=== PATIENT | male | born 1985 | race Caucasian/White ===

== ENCOUNTER 2016-10-22 12:45 | Outpatient (CLI) | payer OTHER | END 2016-10-22 12:46 | disposition home or self-care (01) | DX: R07.89 Other chest pain (principal) ==

== ENCOUNTER 2017-02-11 08:26 | Emergency (ER) | payer OTHER ==
[2017-02-11] MEDS ORDERED: HYDROmorphone 1 MG/ML SYRINGE IVP STA ×2 (09:03→10:41)
[2017-02-11] MEDS ORDERED: ONDANSETRON 4 MG/2 ML VIAL IVP STA (09:03)
--- NOTE | 2017-02-11 09:07 | ED Physician Documentation ---
PD HPI ABD PAIN - Stated complaint Stated Complaint: R SIDE PAIN - Chief complaint Chief Complaint: Abd Pain - History obtained from History obtained from: Patient, Family - History of Present Illness Timing - onset: How many days ago (3) Timing - duration: Days (3) Timing - details: Gradual onset, Still present, Waxing and waning Pain level max: 7 Pain level now: 10 Quality: Sharp, Pain Location: RLQ Radiation: Right flank Improved by: Laying still Worsened by: Moving, Breathing, Position, Palpation Associated symptoms: Nausea. No: Fever, Vomiting, Diarrhea, Constipation, Dysuria, Hematuria, Chest pain Similar symptoms before: Diagnosis (kidney stone, pancreatitis) Recently seen: Not recently seen - Additional information Additional information: 31 y/o male with a history of diverticulitis, kidney stones and pancreatitis has developed pain in the right side over the past 3 days that has come and gone and he has not had fever. Today when he was getting ready for work the pain increased and he has no appetite. Review of Systems Constitutional: denies: Fever Eyes: denies: Decreased vision Ears: denies: Ear pain Nose: reports: Congestion Throat: denies: Sore throat Cardiac: denies: Chest pain / pressure, Palpitations Respiratory: denies: Dyspnea, Cough GI: reports: Abdominal Pain, Nausea. denies: Vomiting, Constipation, Diarrhea : denies: Dysuria, Frequency Skin: denies: Rash, Lesions Musculoskeletal: denies: Neck pain, Back pain, Extremity pain PD PAST MEDICAL HISTORY - Past Medical History Past Medical History: Yes Cardiovascular: Hypertension, [place] Respiratory: Sleep apnea Neuro: None Endocrine/Autoimmune: None GI: GERD, Diverticulitis : None HEENT: None Psych: None Musculoskeletal: None Derm: None - Past Surgical History Past Surgical History: No - Present Medications Home Medications: Ambulatory Orders Medication Instructions Recorded Confirmed Aspirin [Aspir 81] 81 mg PO DAILY 04/23/14 02/11/17 Lisinopril 20 mg PO DAILY 04/23/14 02/11/17 Omeprazole [PriLOSEC] 20 mg PO DAILY 09/24/15 02/11/17 Albuterol Sulf [Ventolin Hfa 1 - 2 puffs INH Q4HR PRN 06/26/16 02/11/17 Inhaler] Multivitamin [Multiple Vitamins] 1 each PO DAILY 06/26/16 02/11/17 Hydrocodone/Acetaminophen 1 - 2 each PO Q6HR PRN #20 tablet 02/11/17 [Hydrocodon-Acetaminophn 10-325] - Allergies Allergies/Adverse Reactions: Allergies Allergy/AdvReac Type Severity Reaction Status Date / Time No Known Drug Allergies Allergy Verified 02/11/17 08:31 - Social History Does the pt smoke?: No Smoking Status: Never smoker Does the pt drink ETOH?: Yes Does the pt have substance abuse?: No - Immunizations Immunizations are current?: Yes - POLST Patient has POLST: No PD ED PE NORMAL - Vitals Vital signs reviewed: Yes (hypertension ) - General General: Alert and oriented X 3, No acute distress, Well developed/nourished - HEENT HEENT: Atraumatic, PERRL, EOMI - Neck Neck: Supple, no meningeal sign - Cardiac Cardiac: RRR, No murmur - Respiratory Respiratory: No respiratory distress, Clear bilaterally - Abdomen Abdomen: Soft, Other (RLQ tenderness without garding and with referred tenderness. ) - Back Back: No CVA TTP, No spinal TTP - Derm Derm: Normal color, Warm and dry, No rash - Extremities Extremities: No deformity, No edema - Neuro Neuro: Alert and oriented X 3, No motor deficit, No sensory deficit, Normal speech - Psych Psych: Normal mood, Normal affect Results - Vitals Vitals: Vital Signs - 24 hr 02/11/17 02/11/17 08:29 10:11 Temperature 36.6 C Heart Rate 88 76 Respiratory 20 17 Rate Blood Pressure 141/79 H 112/53 L O2 Saturation 97 97 Oxygen O2 Source Room air - Labs Labs: Laboratory Tests 02/11/17 02/11/17 02/11/17 08:49 09:12 10:02 WBC 6.2 RBC 4.69 L Hgb 14.7 Hct 42.6 MCV 90.8 MCH 31.3 H MCHC 34.5 RDW 13.2 Plt Count 215 MPV 7.3 L Neut # 3.5 Lymph # 2.1 [place] # 0.4 Eos # 0.1 Baso # 0.1 Absolute Nucleated RBC 0.00 Nucleated RBCs 0.0 Sodium 138 Potassium 4.3 Chloride 104 Carbon Dioxide 25 Anion Gap 9.0 BUN 15 Creatinine 0.6 Estimated GFR (MDRD) 155 Glucose 108 H Calcium 9.4 Total Bilirubin 0.8 AST 37 ALT 52 Alkaline Phosphatase 53 Total Protein 8.0 Albumin 4.2 Globulin 3.8 Albumin/Globulin Ratio 1.1 Lipase 38 Urine Color YELLOW Urine Clarity HAZY Urine pH 6.0 Ur Specific [place] 1.025 Urine Protein NEGATIVE Urine Glucose (UA) NEGATIVE Urine Ketones NEGATIVE Urine Occult Blood LARGE H Urine Nitrite NEGATIVE Urine Bilirubin NEGATIVE Urine Urobilinogen 0.2 (NORMAL) Ur Leukocyte Esterase NEGATIVE Urine RBC 11-25 H Urine WBC 0-3 Ur Squamous Epith Cells FEW Squamous Urine Crystals 3-5 Calcium Oxalate Urine Bacteria Moderate H Urine Casts 6-10 Hyaline Casts Urine Mucus Marked Strands Ur Microscopic Review INDICATED Urine Culture Comments INDICATED - Rads (name of study) two-view chest Radiology: Prelim report reviewed (Impression: 1. A 3 mm obstructing stone in the right ureter at L4 level probably dropped down from the lower pole the right kidney. Previous similar size stone in the lower pole right kidney is no longer present. Mild right hydronephrosis and hydroureter. 2. No change in the several tiny punctate nonobstructing stones in the upper and lower poles of the left kidney. 3. Diffuse fatty infiltration of liver, worse than prior study. No obvious masses demonstrated in is limited noncontrast study. 4. The appendix is normal.), EMP read indepedently, See rad report Procedures - Bedside sono Bedside sono by EMP: with the use of bedside ultrasound the right kidney is imaged and it is sonographically non-tender and without hydronephrosis. PD MEDICAL DECISION MAKING - ED course Complexity details: considered differential, d/w patient, d/w family ED course: 31 y/o male with a history of kidney stones, pancreatitis and diverticulitis has onset of pain in the right side with localized peritoneal signs on physical exam in the RLQ. He has no evidence of hydro on bedside exam but his most recent CT done in Jun 2016 showed small stones (2mm and less) in both kidneys. CT today shows a 3mm stone in the mid ureter, there is blood in the urine and a normal appearing appendix on CT. The patient is given IV saline and dilaudid and a single mg is not adequate and toradal is not much help either. He is given a second dilaudid dose. Departure - Departure Disposition: 01 Home, Self Care Clinical Impression: Ureterolithiasis Condition: Stable Instructions: ED Stone Renal W Colic Follow-Up: Ann Marie Birch MD [Primary Care Provider] - Prescriptions: Hydrocodone/Acetaminophen [Hydrocodon-Acetaminophn 10-325] 1 - 2 each PO Q6HR PRN #20 tablet PRN Reason: Pain Forms: Activity restrictions
[2017-02-11 09:13] LABS: BILIRUBIN,URINE NEGATIVE (NEGATIVE)
[2017-02-11] MEDS ORDERED: ONDANSETRON 4 MG/2 ML VIAL ONE (09:15)
[2017-02-11] MEDS ORDERED: HYDROmorphone 1 MG/ML SYRINGE ONE ×2 (09:15→10:43)
[2017-02-11 09:17] LABS: UA w/ MICROSCOPIC CHARGE YES
[2017-02-11 09:19] LABS: BASOPHILS # (AUTO) 0.1 10^3/uL (0.0-0.1); EOSINOPHILS # (AUTO) 0.1 10^3/uL (0.0-0.7); EOSINOPHILS % (AUTO) 1.5 %; HCT - HEMATOCRIT 42.6 % (42.0-52.0); HGB - HEMOGLOBIN 14.7 g/dL (14.0-18.0); LYMPHOCYTES # (AUTO) 2.1 10^3/uL (1.5-3.5); LYMPHOCYTES % (AUTO) 33.1 %; MEAN CORPUSCULAR HEMOGLOBIN 31.3 pg (27.0-31.0); MEAN CORPUSCULAR HGB CONC 34.5 g/dL (32.0-36.0); MEAN CORPUSCULAR VOLUME 90.8 fL (80.0-94.0); MEAN PLATELET VOLUME 7.3 fL (7.4-11.4); MONOCYTES # (AUTO) 0.4 10^3/uL (0.0-1.0); NEUTROPHILS # (AUTO) 3.5 10^3/uL (1.5-6.6); NEUTROPHILS % (AUTO) 57.4 %; RED BLOOD COUNT 4.69 10^6/uL (4.70-6.10); RED CELL DISTRIBUTION WIDTH 13.2 % (12.0-15.0); UNCORRECTED WHITE BLOOD COUNT 6.2 x10^3/uL; WHITE BLOOD COUNT 6.2 x10^3/uL (4.8-10.8)
[2017-02-11 09:34] LABS: UR CULTURE IF IND INDICATED; WBC,URINE 0-3 /HPF (0-3)
--- NOTE | 2017-02-11 09:56 | CT Preliminary Report ---
Exam: CT Abdomen/Pelvis W/O IMPRESSION: 1. A 3 mm obstructing stone in the right ureter at L4 level probably dropped down from the lower pole of the right kidney. Previous similar size stone in the lower pole of the right kidney is no longer present. Mild right hydronephrosis and hydroureter. 2. No change in the several tiny punctate nonobstructing stones in the upper and lower poles of the l eft kidney. 3. Diffuse fatty infiltration of liver, worse than in the prior study. No obvious mass is demonstrate d in this limited noncontrast study. 4. The appendix is normal. [facility] SITE ID: [id number]
[2017-02-11] MEDS ORDERED: SODIUM CHLORIDE 0.9% 1,000 ML IV ONE (09:59)
[2017-02-11] MEDS ORDERED: KETOROLAC 60 MG/2 ML VIAL IVP STA (09:59)
--- NOTE | 2017-02-11 09:59 | CT Report ---
EXAM: CT ABDOMEN AND PELVIS (CT KUB) EXAM DATE: 02/11/2017 09:38 AM. CLINICAL HISTORY: RLQ pain radiating to the flank/tender. COMPARISONS: CT ABDOMEN AND PELVIS (CT KUB) 06/26/2016. TECHNIQUE: Routine axial helical CT imaging was performed through the abdomen and pelvis without IV c ontrast. Reconstructions: Coronal and sagittal. In accordance with CT protocol optimization, one or more of the following dose reduction techniques w ere utilized for this exam: automated exposure control, adjustment of mA and/or KV based on patient s ize, or use of iterative reconstructive technique. FINDINGS: Lung Bases: Unremarkable. Right Kidney/Ureter: A 3 mm mildly obstructing stone in the right ureter at L4 level probably dropped down from the lower pole of the right kidney. Previous similar size stone in the lower pole of the r ight kidney is no longer present. No renal stones. Mild right hydronephrosis and hydroureter. Mild pe rinephric fat stranding. Left Kidney/Ureter: No change in the several tiny punctate stones in the upper and lower poles of the left kidney. No hydronephrosis, or hydroureter. No perinephric fat stranding. Other Solid Organs: Diffuse fatty infiltration of liver, worse than in the prior study. No obvious ma ss is demonstrated in this limited noncontrast study. Noncontrast images of the other solid organs ar e grossly unremarkable. Gallbladder/Bile Ducts: Unremarkable. Peritoneal Cavity: No free fluid, free air or josue adenopathy. Bowel is grossly unremarkable. The ap pendix is normal. Pelvic Organs: No bladder stones or wall thickening. Noncontrast images of the visualized pelvic orga ns are unremarkable. Vasculature: Unremarkable. Other: None. IMPRESSION: 1. A 3 mm obstructing stone in the right ureter at L4 level probably dropped down from the lower pole of the right kidney. Previous similar size stone in the lower pole of the right kidney is no longer present. Mild right hydronephrosis and hydroureter. 2. No change in the several tiny punctate nonobstructing stones in the upper and lower poles of the l eft kidney. 3. Diffuse fatty infiltration of liver, worse than in the prior study. No obvious mass is demonstrate d in this limited noncontrast study. 4. The appendix is normal. [facility] Referring Provider Line: [phone] SITE ID: [id number]
[2017-02-11] MEDS ORDERED: KETOROLAC 30 MG/ML VIAL ONE (10:01)
[2017-02-11 10:21] LABS: ALBUMIN/GLOBULIN RATIO 1.1 (1.0-2.2); BILIRUBIN,TOTAL 0.8 mg/dL (0.2-1.0); CALCIUM 9.4 mg/dL (8.5-10.3); CREATININE 0.6 mg/dL (0.6-1.2); POTASSIUM 4.3 mmol/L (3.5-5.0)
[2017-02-11 11:28] VITALS: BP 134/68
== END 2017-02-11 11:27 | disposition home or self-care (01) ==
LOC: ED 08:26
DX: N13.2 Hydronephrosis with renal and ureteral calculous obstruction (principal); Z87.442 Personal history of urinary calculi; Z87.19 Personal history of other diseases of the digestive system; I10 Essential (primary) hypertension; I25.2 Old myocardial infarction; G47.30 Sleep apnea, unspecified; K21.9 Gastro-esophageal reflux disease without esophagitis; Z79.82 Long term (current) use of aspirin
CPT/HCPCS: 36415; 74176; 80053; 81001; 83690; 85025; 87086; 96361; 96374; 96375; 96376; 99284; J1170; 81003

== ENCOUNTER 2019-04-27 00:18 | Emergency (ER) | payer OTHER ==
[2019-04-27 00:57] LABS: BASOPHILS % (AUTO) 0.4 %; EOSINOPHILS # (AUTO) 0.1 10^3/uL (0.0-0.7); HGB - HEMOGLOBIN 15.5 g/dL (14.0-18.0); LYMPHOCYTES % (AUTO) 37.9 %; MEAN CORPUSCULAR HEMOGLOBIN 31.2 pg (27.0-31.0); MEAN CORPUSCULAR HGB CONC 34.4 g/dL (32.0-36.0); MEAN CORPUSCULAR VOLUME 90.5 fL (80.0-94.0); MEAN PLATELET VOLUME 9.1 fL (7.4-11.4); MONOCYTES # (AUTO) 0.8 10^3/uL (0.0-1.0); MONOCYTES % (AUTO) 9.5 %; NEUTROPHILS % (AUTO) 50.3 %; PLT - PLATELET COUNT 219 10^3/uL (130-450); RED BLOOD COUNT 4.97 10^6/uL (4.70-6.10); RED CELL DISTRIBUTION WIDTH 13.1 % (12.0-15.0); WHITE BLOOD COUNT 7.9 x10^3/uL (4.8-10.8)
[2019-04-27 01:11] LABS: ALBUMIN 4.3 g/dL (3.2-5.5); ALBUMIN/GLOBULIN RATIO 1.1 (1.0-2.2); BILIRUBIN,TOTAL 0.6 mg/dL (0.2-1.0); CALCIUM 8.8 mg/dL (8.5-10.3); CREATININE 0.7 mg/dL (0.6-1.2); TOTAL PROTEIN 8.3 g/dL (6.7-8.2)
[2019-04-27] MEDS ORDERED: DEXAMETHASONE 10 MG/ML VIAL IVP STA (01:48)
[2019-04-27] MEDS ORDERED: KETOROLAC 30 MG/ML VIAL IVP STA (01:48)
--- NOTE | 2019-04-27 01:50 | ED Physician Documentation ---
PD HPI CHEST PAIN - Stated complaint Stated Complaint: SOA,TIGHT CHEST, ARM PX - Chief complaint Chief Complaint: Cardiac - History obtained from History obtained from: Patient, Family - History of Present Illness Timing - onset: Enter time (1999), Today Timing - onset during: Rest Timing - duration: Hours Timing - details: Abrupt onset, Still present Quality: Sharp, Pain Location: Left shoulder/arm Radiation: Left upper extremity Improved by: Nothing Worsened by: Other (nothing) Associated symptoms: Shortness of air. 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 He states the pain is sharp and burning in nature and when this initially came on he had no explanation and he does not have any difficulty with range of motion of the shoulder and the and movement does not appear to change the pain in any way. He felt initially that he might be short of breath and that resolved. His pain resolved and when it came back it has persisted and he is come now to the emergency department for evaluation. He denies any weakness or numbness. He has not had injury to his neck he denies any pain in his neck and he denies any specific injury today at work. He does get headache related to his neck and he had that earlier today. Review of Systems Constitutional: denies: Fever Eyes: denies: Decreased vision Ears: denies: Ear pain Nose: denies: Congestion Throat: denies: Sore throat Cardiac: denies: Chest pain / pressure, Palpitations Respiratory: reports: Dyspnea. denies: Cough, Wheezing GI: denies: Abdominal Pain, Nausea, Vomiting : denies: Dysuria, Frequency Skin: denies: Rash, Lesions Musculoskeletal: reports: Extremity pain. denies: Neck pain, Back pain, Joint pain, Extremity swelling, Joint swelling, Pain with weight bearing Neurologic: denies: Generalized weakness, Focal weakness, Numbness PD PAST MEDICAL HISTORY - Past Medical History Cardiovascular: Hypertension, [place] Respiratory: Sleep apnea Neuro: None Endocrine/Autoimmune: None GI: GERD, Diverticulitis : None HEENT: None Psych: None Musculoskeletal: None Derm: None - Past Surgical History Past Surgical History: No - Present Medications Home Medications: Ambulatory Orders Medication Instructions Recorded Confirmed Aspirin [Aspir 81] 81 mg PO DAILY 04/23/14 02/11/17 RX: Lisinopril 20 mg PO DAILY 04/23/14 02/11/17 Omeprazole [PriLOSEC] 20 mg PO DAILY 09/24/15 02/11/17 Albuterol Sulf [Ventolin Hfa 1 - 2 puffs INH Q4HR PRN 06/26/16 02/11/17 Inhaler] Multivitamin [Multiple Vitamins] 1 each PO DAILY 06/26/16 02/11/17 Hydrocodone/Acetaminophen 1 - 2 each PO Q6HR PRN #20 tablet 02/11/17 [Hydrocodon-Acetaminophn 10-325] Cyclobenzaprine [Flexeril] 10 mg PO TID PRN #20 tablet 04/27/19 Hydrocodone/Acetaminophen 1 - 2 each PO Q6H PRN #14 tablet 04/27/19 [Hydrocodon-Acetaminophen 5-325] - Allergies Allergies/Adverse Reactions: Allergies Allergy/AdvReac Type Severity Reaction Status Date / Time No Known Drug Allergies Allergy Verified 02/11/17 08:31 - Social History Does the pt smoke?: No Smoking Status: Never smoker Does the pt drink ETOH?: Yes Does the pt have substance abuse?: No - Immunizations Immunizations are current?: Yes - POLST Patient has POLST: No PD ED PE NORMAL - Vitals Vital signs reviewed: Yes (hypertensive ) - General General: Alert and oriented X 3, No acute distress, Well developed/nourished - HEENT HEENT: Atraumatic, PERRL, EOMI - Neck Neck: Supple, no meningeal sign, No bony TTP, Other (no pain increase with axial pressure on the head ) - Cardiac Cardiac: RRR, No murmur - Respiratory Respiratory: No respiratory distress, Clear bilaterally - Abdomen Abdomen: Soft, Non tender - Back Back: No CVA TTP, No spinal TTP - Derm Derm: Normal color, Warm and dry, No rash - Extremities Extremities: No deformity, No tenderness to palpate, Normal ROM s pain, No edema, No calf tenderness / cord - Neuro Neuro: Alert and oriented X 3, 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, No motor deficit, No sensory deficit, Normal speech Eye Opening: Spontaneous Motor: Obeys Commands Verbal: Oriented GCS Score: 15 - Psych Psych: Normal mood, Normal affect Results - Vitals Vitals: Vital Signs - 24 hr 04/27/19 04/27/19 04/27/19 00:26 00:55 02:34 Temperature 36.3 C L Heart Rate 85 82 76 Respiratory 17 14 20 Rate Blood Pressure 155/89 H 132/87 H 146/81 H O2 Saturation 98 97 94 04/27/19 03:11 Temperature 36.6 C Heart Rate 79 Respiratory 18 Rate Blood Pressure 136/78 H O2 Saturation 95 Oxygen O2 Source Room air - EKG (time done) 0028 Rate: Rate (enter#) (88) Rhythm: NSR Ischemia: Normal ST segments Compare to prior EKG: Changed from prior EKG (SPT 09-13-15 rate has decreased) Computer interpretation: Agree with computer - Labs Labs: Laboratory Tests 04/27/19 04/27/19 04/27/19 00:40 00:40 00:40 WBC 7.9 RBC 4.97 Hgb 15.5 Hct 45.0 MCV 90.5 MCH 31.2 H MCHC 34.4 RDW 13.1 Plt Count 219 MPV 9.1 Neut # (Auto) 4.0 Lymph # (Auto) 3.0 [place] # (Auto) 0.8 Eos # (Auto) 0.1 Baso # (Auto) 0.0 Absolute Nucleated RBC 0.00 Nucleated RBC % 0.0 D-Dimer Sodium 140 Potassium 3.6 Chloride 105 Carbon Dioxide 25 Anion Gap 10.0 BUN 14 Creatinine 0.7 Estimated GFR (MDRD) 128 Glucose 109 H Calcium 8.8 Total Bilirubin 0.6 AST 29 ALT 40 Alkaline Phosphatase 43 Troponin I High Sens 2.9 Total Protein 8.3 H Albumin 4.3 Globulin 4.0 Albumin/Globulin Ratio 1.1 Lipase 42 04/27/19 01:40 WBC RBC Hgb Hct MCV MCH MCHC RDW Plt Count MPV Neut # (Auto) Lymph # (Auto) [place] # (Auto) Eos # (Auto) Baso # (Auto) Absolute Nucleated RBC Nucleated RBC % D-Dimer < 200.0 L Sodium Potassium Chloride Carbon Dioxide Anion Gap BUN Creatinine Estimated GFR (MDRD) Glucose Calcium Total Bilirubin AST ALT Alkaline Phosphatase Troponin I High Sens Total Protein Albumin Globulin Albumin/Globulin Ratio Lipase - Rads (name of study) chest Radiology: Prelim report reviewed (Impression: No radiographic evidence of acute cardiopulmonary process.), EMP read indepedently, See rad report shoulder Radiology: Prelim report reviewed (Impression: Normal left shoulder radiography.), EMP read indepedently, See rad report PD MEDICAL DECISION MAKING - ED course Complexity details: reviewed old records, reviewed results, re-evaluated patient, considered differential, d/w patient, d/w family ED course: 34-year-old male with sudden onset of left shoulder and arm pain without explanation and without modifying factors has negative diagnostics and he does have some improvement with use of dexamethasone and Toradol. I suspect he has a cervical radiculopathy. Departure - Departure Disposition: 01 Home, Self Care Clinical Impression: Cervical radiculopathy Condition: Stable Instructions: ED Cervical Radiculopathy Follow-Up: [facility] [Provider Group] Prescriptions: Cyclobenzaprine [Flexeril] 10 mg PO TID PRN #20 tablet PRN Reason: Spasms Hydrocodone/Acetaminophen [Hydrocodon-Acetaminophen 5-325] 1 - 2 each PO Q6H PRN #14 tablet PRN Reason: pain Forms: Activity restrictions Discharge Date/Time: 04/27/19 03:12
--- NOTE | 2019-04-27 02:41 | XRAY Report ---
Reason: shoulder pain radiating Procedure Date: 04/27/2019 Accession Number: [id number] / [id number] Procedure: XR - Chest 2 View X-Ray CPT Code: 50591 FULL RESULT: EXAM: CHEST RADIOGRAPHY EXAM DATE: 04/27/2019 02:13 AM. CLINICAL HISTORY: Shoulder pain radiating. COMPARISON: CHEST 2 VIEW PA/LAT 09/24/2015 7:30 PM. TECHNIQUE: 2 views. FINDINGS: Lungs/Pleura: No focal opacities evident. No pulmonary edema. No pleural effusion. No pneumothorax. Low normal volumes. Mediastinum: Heart and mediastinal contours are unremarkable. Other: None. IMPRESSION: No radiographic evidence of acute cardiopulmonary process. [facility]
--- NOTE | 2019-04-27 02:43 | XRAY Report ---
Reason: shoulder pain radiating Procedure Date: 04/27/2019 Accession Number: [id number] / [id number] Procedure: XR - Shoulder 3 View LT CPT Code: FULL RESULT: EXAM: LEFT SHOULDER RADIOGRAPHY EXAM DATE: 04/27/2019 02:13 AM. CLINICAL HISTORY: Shoulder pain radiating. COMPARISON: SHOULDER 2 VIEW LT 03/18/2017 2:44 PM. TECHNIQUE: 4 views. FINDINGS: Bones: Normal. No fracture or bone lesion. Joints: The glenohumeral and acromioclavicular joints are normal. Soft tissues: The visualized hemithorax is unremarkable. No soft tissue swelling. IMPRESSION: Normal left shoulder radiography. [facility]
[2019-04-27 03:12] VITALS: BP 136/78
== END 2019-04-27 03:12 | disposition home or self-care (01) ==
LOC: ED 00:18
DX: M54.12 Radiculopathy, cervical region (principal); I10 Essential (primary) hypertension
CPT/HCPCS: 36415; 71046; 80053; 83690; 84484; 85025; 85379; 93005; 96374; 99284

== ENCOUNTER 2019-05-08 08:00 | Outpatient (CLI) | payer OTHER ==
[2019-05-08 18:47] LABS: CHOL/HDL RATIO 4.8 (<5.0); CHOLESTEROL 173 mg/dL; HDL CHOLESTEROL 36 mg/dL; LDL CHOLESTEROL,CALCULATED 96 mg/dL; LDL/HDL RATIO 2.7 (<3.6); VLDL CHOLESTEROL 41 mg/dL
== END 2019-05-08 23:59 | disposition home or self-care (01) ==
LOC: LAB.WCP 08:00
PROVIDERS: ATTEND Family Medicine
DX: E78.5 Hyperlipidemia, unspecified (principal)
CPT/HCPCS: 36415; 80061; 83721

== ENCOUNTER 2019-09-13 13:49 | Outpatient (CLI) | payer OTHER ==
[2019-09-13] MEDS ORDERED: PERFLUTREN LIPID MICROSPHERES 1.65 MG/1.5 ML VIAL IVP ONE (15:30)
--- NOTE | 2019-09-13 17:52 | CARDIAC PROCEDURE NOTE ---
DATE OF SERVICE: 09/13/2019 Physician: Maral Paz MD, [facility] INDICATION: Shortness of breath. CARDIAC RISK FACTORS: Morbid obesity, hypertension, family history in many members with early heart disease and cardiac . PROCEDURE: After signing informed consent, the patient underwent a Juan- protocol treadmill stress test with Echo imaging pre- and post-exercise. Definity was needed for improving Echo images due to his morbid obesity causing poor images. RESTING HEART RATE: 85. PEAK HEART RATE: 171 (92% predicted maximum heart rate for age). RESTING BLOOD PRESSURE: 135/79. PEAK BLOOD PRESSURE: 210/66. The patient exercised for 7 minutes and 27 seconds on a Juan-protocol treadmill stress test. He achieved a peak heart rate of 171 (92% PMHR) and 9.3 METS. The patient had moderate shortness of breath and reported his perceived exertion at peak to be 13-14/20 on a [place] scale. Oxygen saturation was 96-98% on room air throughout the entire test. RESTING EKG: Normal sinus rhythm, left atrial enlargement, vertical axis, flat T waves in leads III, aVF and V6. EKG AT PEAK: No new ST-segment or T-wave changes. SUMMARY 1. Abnormal resting EKG. 2. Fair aerobic exercise tolerance. 3. No new ischemic changes per EKG criteria during this treadmill stress test. 4. Excessively high blood pressure response. (The patient was told not to use his morning lisinopril today). 5. This patient's cardiac risk based on all the above: Moderate. 6. Echo images reported separately. cc: Kareem Tao DO TD: 09/13/2019 17:28 [facility]
== END 2019-09-13 13:50 | disposition home or self-care (01) ==
LOC: DI 13:49
PROVIDERS: ATTEND Family Medicine
DX: R06.02 Shortness of breath (principal); I10 Essential (primary) hypertension; E78.5 Hyperlipidemia, unspecified; Z82.49 Family history of ischemic heart disease and other diseases of the circulatory system; R94.31 Abnormal electrocardiogram [ECG] [EKG]
CPT/HCPCS: 93350; Q9957

== ENCOUNTER 2020-01-24 18:12 | Emergency (ER) | payer OTHER ==
--- NOTE | 2020-01-24 18:48 | ED Physician Documentation ---
PD HPI ABD PAIN - Stated complaint Stated Complaint: NAUSEA/LT ABD PX - Chief complaint Chief Complaint: Abd Pain - Additional information Additional information: 34 year old male here with cc of 3 days left sided abdominal pain. Vomiting X1, but no diarrhea, melena. Pt reports that about 10 years ago he was hospitalized for diverticulitis. However he has never had surgery. Also has a hx of nephrolithaisis, but denies flank pain, cva tenderness or hematuria. Pt appears very uncomfortable Review of Systems Constitutional: denies: Fever, Chills, Myalgias Cardiac: denies: Chest pain / pressure, Palpitations Respiratory: denies: Dyspnea, Cough GI: reports: Abdominal Pain, Vomiting. denies: Constipation, Diarrhea, Hematemesis, Bloody / black stool : denies: Dysuria, Frequency, Hesitancy, Unable to Void, Hematuria Skin: denies: Rash, Lesions Neurologic: denies: Generalized weakness, Focal weakness, Syncope, Seizure PD PAST MEDICAL HISTORY - Past Medical History Cardiovascular: Hypertension, [place] Respiratory: Sleep apnea Neuro: None Endocrine/Autoimmune: None GI: GERD, Diverticulitis : None HEENT: None Psych: None Musculoskeletal: None Derm: None - Past Surgical History Past Surgical History: No - Present Medications Home Medications: Ambulatory Orders Medication Instructions Recorded Confirmed Aspirin [Aspir 81] 81 mg PO DAILY 04/23/14 01/24/20 Lisinopril 20 mg PO DAILY 04/23/14 01/24/20 Ciprofloxacin HCl [Cipro] 500 mg PO BID #20 tablet 01/24/20 Hydrocodone/Acetaminophen 1 each PO Q6H PRN 1 Days #3 tablet 01/24/20 [Hydrocodon-Acetaminophen 5-325] metroNIDAZOLE [Flagyl] 500 mg PO BID #20 tablet 01/24/20 - Allergies Allergies/Adverse Reactions: Allergies Allergy/AdvReac Type Severity Reaction Status Date / Time No Known Drug Allergies Allergy Verified 01/24/20 18:20 - Social History Does the pt smoke?: No Smoking Status: Never smoker Does the pt drink ETOH?: Yes Does the pt have substance abuse?: No - Immunizations Immunizations are current?: Yes - POLST Patient has POLST: No PD ED PE NORMAL - General General: Alert and oriented X 3, No acute distress, Well developed/nourished - HEENT HEENT: Atraumatic - Neck Neck: Supple, no meningeal sign - Cardiac Cardiac: RRR, No murmur - Respiratory Respiratory: No respiratory distress - Abdomen Abdomen: Other (tenderness LUQ and LLQ of abdomen; negative mcburneys, negative murphys. no rebound, guarding) - Back Back: No CVA TTP, No spinal TTP - Extremities Extremities: No deformity, Normal ROM s pain, No edema - Neuro Neuro: Alert and oriented X 3, ophthalmic tech 2-12 intact, No motor deficit Results - Vitals Vitals: Vital Signs - 24 hr 01/24/20 18:21 Temperature 37 C Heart Rate 111 H Respiratory 18 Rate Blood Pressure 159/86 H O2 Saturation 98 Oxygen O2 Source Room air - Labs Labs: Laboratory Tests 01/24/20 01/24/20 18:43 18:43 WBC 11.6 H RBC 4.89 Hgb 15.8 Hct 45.1 MCV 92.2 MCH 32.3 H MCHC 35.0 RDW 12.4 Plt Count 195 MPV 9.2 Neut # (Auto) 8.3 H Lymph # (Auto) 2.3 [place] # (Auto) 0.9 Eos # (Auto) 0.0 Baso # (Auto) 0.1 Absolute Nucleated RBC 0.00 Nucleated RBC % 0.0 Sodium 135 Potassium 4.0 Chloride 100 L Carbon Dioxide 26 Anion Gap 9.0 BUN 11 Creatinine 0.7 Estimated GFR (MDRD) 128 Glucose 104 H Calcium 8.8 Total Bilirubin 0.7 AST 28 ALT 43 Alkaline Phosphatase 44 Total Protein 8.3 H Albumin 4.4 Globulin 3.9 Albumin/Globulin Ratio 1.1 Lipase 38 - Rads (name of study) CT abd Radiology: Final report received (Left colon diverticulitis without abscess or perforation. no free air or fluid) PD MEDICAL DECISION MAKING - ED course Complexity details: reviewed old records, reviewed results, re-evaluated patient, considered differential, d/w patient ED course: 34 year old male presents to the ED with 2 days of left sided abdominal pain. has a hx of diverticulitis and nephrolithiasis - CT scan reveals uncomplicated diverticulitis without abscess or perforation of the left colon - labs reassuring. no significant leukocytosis. UA unremarkable and no e/o infection - pain is moderately controlled here in clinic after Dilaudid and pt is tolerating po - dc home with flagyl and cipro - will rx very limited # norco (3) for analgesia - explicit return precautions discussed - f/u with pcp for revaluation Departure - Departure Disposition: 01 Home, Self Care Clinical Impression: Diverticulitis large intestine Qualifiers: Diverticulitis bleeding: without bleeding Diverticulitis complication: without perforation or abscess Qualified Code(s): K57.32 - Diverticulitis of large intestine without perforation or abscess without bleeding Condition: Stable Record reviewed to determine appropriate education?: Yes Instructions: Diverticulitis Dc Follow-Up: Kareem Tao DO [Primary Care Provider] - Prescriptions: Ciprofloxacin HCl [Cipro] 500 mg PO BID #20 tablet Hydrocodone/Acetaminophen [Hydrocodon-Acetaminophen 5-325] 1 each PO Q6H PRN 1 Days #3 tablet PRN Reason: pain metroNIDAZOLE [Flagyl] 500 mg PO BID #20 tablet Comments: Jaun, i hope you feel better soon. The CT scan shows again an uncomplicated diverticulitis. please begin taking the cipro and flagyl antibiotics as prescribed for pain control I prescribed a very limited Number of hydrocodone for pain control. If your symptoms are worsening you develop fevers or bloody stools please return to the emergency department. Follow-up with your primary care provider this week.
[2020-01-24] MEDS ORDERED: ONDANSETRON 4 MG/2 ML VIAL IVP STA (18:50)
[2020-01-24 18:51] LABS: BASOPHILS # (AUTO) 0.1 10^3/uL (0.0-0.1); BASOPHILS % (AUTO) 0.6 %; EOSINOPHILS % (AUTO) 0.3 %; HGB - HEMOGLOBIN 15.8 g/dL (14.0-18.0); LYMPHOCYTES # (AUTO) 2.3 10^3/uL (1.5-3.5); LYMPHOCYTES % (AUTO) 19.7 %; MEAN CORPUSCULAR HEMOGLOBIN 32.3 pg (27.0-31.0); MEAN CORPUSCULAR VOLUME 92.2 fL (80.0-94.0); MEAN PLATELET VOLUME 9.2 fL (7.4-11.4); MONOCYTES # (AUTO) 0.9 10^3/uL (0.0-1.0); MONOCYTES % (AUTO) 7.5 %; NEUTROPHILS # (AUTO) 8.3 10^3/uL (1.5-6.6); NEUTROPHILS % (AUTO) 71.3 %; PLT - PLATELET COUNT 195 10^3/uL (130-450); RED BLOOD COUNT 4.89 10^6/uL (4.70-6.10); RED CELL DISTRIBUTION WIDTH 12.4 % (12.0-15.0); WHITE BLOOD COUNT 11.6 x10^3/uL (4.8-10.8)
[2020-01-24] MEDS ORDERED: HYDROmorphone 1 MG/ML CARPUJECT IVP STA (18:52)
[2020-01-24 19:03] LABS: ALBUMIN 4.4 g/dL (3.2-5.5); ALBUMIN/GLOBULIN RATIO 1.1 (1.0-2.2); BILIRUBIN,TOTAL 0.7 mg/dL (0.2-1.0); CALCIUM 8.8 mg/dL (8.5-10.3); CREATININE 0.7 mg/dL (0.6-1.2); TOTAL PROTEIN 8.3 g/dL (6.7-8.2)
[2020-01-24] MEDS ORDERED: IOVERSOL 320 100 ML VIAL IVP ONE ×2 (19:15→20:46)
[2020-01-24 19:22] LABS: BILIRUBIN,URINE NEGATIVE (NEGATIVE); GLUCOSE, URINE (UA) NEGATIVE (NEGATIVE); KETONES,URINE (UA) NEGATIVE (NEGATIVE); LEUKOCYTE ESTERASE, URINE NEGATIVE (NEGATIVE); NITRITE,URINE NEGATIVE (NEGATIVE); OCCULT BLOOD,URINE TRACE-INTA (NEGATIVE); PH,URINE 5.5 PH (5.0-7.5); PROTEIN,URINE NEGATIVE (NEGATIVE); UROBILINOGEN,URINE 0.2 (NORMAL) E.U./dL (NORMAL)
[2020-01-24 19:29] LABS: CLARITY,URINE CLEAR (CLEAR)
--- NOTE | 2020-01-24 19:42 | CT Report ---
Reason: LLQ pain; hx of diverticulitis. vomiting Procedure Date: 01/24/2020 Accession Number: [id number] / [id number] Procedure: CT - Abdomen/Pelvis W CPT Code: Final Report FULL RESULT: PROCEDURE: Abdomen/Pelvis W INDICATIONS: LLQ pain; hx of diverticulitis. vomiting CONTRAST: IV CONTRAST: Optiray 320 ml: 100 PO CONTRAST: *NO PO CONTRAST TECHNIQUE: After the administration of oral and intravenous contrast, 5 mm thick sections acquired from the diaphragms to the symphysis. 5 mm thick coronal and sagittal reformats were acquired. For radiation dose reduction, the following was used: automated exposure control, adjustment of mA and/or kV according to patient size. COMPARISON: CT abdomen and pelvis 02/11/2017 and 06/26/2016. FINDINGS: Image quality: Excellent. ABDOMEN: Lung bases: Lung bases are clear. Heart size is normal. Solid organs: Liver and spleen are normal in size and enhancement. Mild, diffuse fatty infiltration of the liver. Gallbladder is within normal limits Biliary system is non dilated. Pancreas enhances normally. No adrenal nodules. Kidneys demonstrate normal size and enhancement, without hydronephrosis. Peritoneum and bowel: Bowel loops demonstrate normal wall thickness and caliber. A few scattered diverticuli noted in the colon. Mild inflammatory changes noted adjacent to diverticuli in the mid left colon. No peridiverticular free fluid, abscess or free air. No free fluid or air. The appendix is normal. Nodes and vessels: No retroperitoneal or mesenteric adenopathy by size criteria. Aorta and inferior vena cava are normal in size. Miscellaneous: No ventral hernias. PELVIS: Genitourinary: Bladder wall thickness is normal. Miscellaneous: No inguinal hernias or adenopathy. Bones: No suspicious bony lesions. No vertebral body compression fractures. Spine degenerative disc disease and facet arthropathy are noted. IMPRESSION: 1. Left colon diverticulitis. 2. No peridiverticular abscess. 3. No free fluid or free air. 4. Hepatic steatosis. Reviewed by: Olga Appiah MD, PhD on 01/24/2020 7:41 PM PDT Approved by: Olga pApiah MD, PhD on 01/24/2020 7:41 PM PDT Station ID: [id number]
[2020-01-24 19:53] LABS: BACTERIA,URINE None Seen /HPF (None Seen); RBC,URINE 0-5 /HPF (0-5); SQUAMOUS EPITHELIAL CELL,UR NONE SEEN (<= Few)
[2020-01-24] MEDS ORDERED: HYDROcod/ACETAM 5/325 MG TABLET PO STA (20:15)
[2020-01-24 20:35] VITALS: BP 117/69
== END 2020-01-24 20:35 | disposition home or self-care (01) ==
LOC: ED 18:12
DX: K57.32 Diverticulitis of large intestine without perforation or abscess without bleeding (principal); K76.0 Fatty (change of) liver, not elsewhere classified; I10 Essential (primary) hypertension; Z79.82 Long term (current) use of aspirin
CPT/HCPCS: 36415; 74177; 80053; 81001; 83690; 85025; 96374; 99283; 99284; A9270; J1170; Q9967; 87086

== ENCOUNTER 2020-01-25 18:49 | Inpatient (IN) | payer OTHER ==
[2020-01-25 19:15] LABS: BASOPHILS # (AUTO) 0.1 10^3/uL (0.0-0.1); BASOPHILS % (AUTO) 0.4 %; EOSINOPHILS % (AUTO) 0.2 %; LYMPHOCYTES # (AUTO) 2.1 10^3/uL (1.5-3.5); LYMPHOCYTES % (AUTO) 16.1 %; MEAN CORPUSCULAR HEMOGLOBIN 32.3 pg (27.0-31.0); MEAN CORPUSCULAR HGB CONC 35.2 g/dL (32.0-36.0); MEAN CORPUSCULAR VOLUME 91.6 fL (80.0-94.0); MONOCYTES # (AUTO) 1.1 10^3/uL (0.0-1.0); MONOCYTES % (AUTO) 8.1 %; NEUTROPHILS # (AUTO) 9.8 10^3/uL (1.5-6.6); NEUTROPHILS % (AUTO) 74.4 %; PLT - PLATELET COUNT 196 10^3/uL (130-450); RED BLOOD COUNT 4.65 10^6/uL (4.70-6.10); RED CELL DISTRIBUTION WIDTH 12.3 % (12.0-15.0); WHITE BLOOD COUNT 13.1 x10^3/uL (4.8-10.8)
[2020-01-25] MEDS ORDERED: PIPERACILLIN/TAZOBACTAM 4.5 GM in SODIUM CHLORIDE 0.9% MINIBAG 100 ML IV STA (19:23)
[2020-01-25] MEDS ORDERED: SODIUM CHLORIDE 0.9% 1,000 ML IV STA (19:23)
[2020-01-25 19:26] LABS: ALBUMIN 4.5 g/dL (3.2-5.5); ALBUMIN/GLOBULIN RATIO 1.1 (1.0-2.2); BILIRUBIN,TOTAL 1.5 mg/dL (0.2-1.0); CREATININE 0.6 mg/dL (0.6-1.2); TOTAL PROTEIN 8.5 g/dL (6.7-8.2)
[2020-01-25] MEDS ORDERED: HYDROmorphone 1 MG/ML CARPUJECT IVP STA (19:26)
[2020-01-25] MEDS ORDERED: ONDANSETRON 4 MG/2 ML VIAL IVP STA (19:26)
--- NOTE | 2020-01-25 19:27 | ED Physician Documentation ---
History of Present Illness - Stated complaint Stated Complaint: ABD PX/FEVER/NAUSEA - Chief complaint Chief Complaint: Abd Pain - History obtained from History obtained from: Patient, Family - Additonal information Additional information: 34-year-old male returns to the emergency department with chief complaint of worsening abdominal pain new onset fevers and persistent vomiting. Patient was seen by myself yesterday evening where he was diagnosed with diverticulitis. CT scan showed uncomplicated diverticulitis without abscess or microperforation. He was discharged home with a prescription for analgesics Cipro and Flagyl. But since being discharged home he has been unable to keep any food or medication down.Patient has had not had a bowel movement but he denies bloody or mucoid stools. Patient reports fevers as high as 101. Patient reports that his pain is mostly left-sided with radiation to his groin. He denies any hematuria or dysuria. Review of Systems Constitutional: reports: Fever, Chills. denies: Myalgias, Fatigue Cardiac: denies: Chest pain / pressure, Palpitations Respiratory: denies: Dyspnea, Cough GI: reports: Abdominal Pain, Nausea, Vomiting. denies: Constipation, Hematemesis, Bloody / black stool : denies: Dysuria, Frequency Skin: denies: Rash Musculoskeletal: denies: Neck pain, Back pain Neurologic: denies: Generalized weakness, Syncope, Seizure Psychiatric: reports: Reviewed and negative Immunocompromised: reports: Reviewed and negative PD PAST MEDICAL HISTORY - Past Medical History Cardiovascular: Hypertension, [place] Respiratory: Sleep apnea Neuro: None Endocrine/Autoimmune: None GI: GERD, Diverticulitis : None HEENT: None Psych: None Musculoskeletal: None Derm: None - Past Surgical History Past Surgical History: No - Present Medications Home Medications: Ambulatory Orders Medication Instructions Recorded Confirmed Aspirin [Aspir 81] 81 mg PO DAILY 04/23/14 01/24/20 Lisinopril 20 mg PO DAILY 04/23/14 01/24/20 Ciprofloxacin HCl [Cipro] 500 mg PO BID #20 tablet 01/24/20 Hydrocodone/Acetaminophen 1 each PO Q6H PRN 1 Days #3 tablet 01/24/20 [Hydrocodon-Acetaminophen 5-325] metroNIDAZOLE [Flagyl] 500 mg PO BID #20 tablet 01/24/20 - Allergies Allergies/Adverse Reactions: Allergies Allergy/AdvReac Type Severity Reaction Status Date / Time No Known Drug Allergies Allergy Verified 01/25/20 18:55 - Social History Does the pt smoke?: No Smoking Status: Never smoker Does the pt drink ETOH?: Yes Does the pt have substance abuse?: No - Immunizations Immunizations are current?: Yes - POLST Patient has POLST: No PD ED PE NORMAL - General General: Alert and oriented X 3, Well developed/nourished, Other (appears uncomfortable) - HEENT HEENT: Atraumatic, Pharynx benign - Neck Neck: Supple, no meningeal sign, No adenopathy - Cardiac Cardiac: RRR, No murmur, Strong equal pulses (tachycardia), Other - Abdomen Abdomen: Soft, Other (tenderess across the LUQ and LLQ. + rebound ) - Back Back: No CVA TTP, No spinal TTP - Derm Derm: Normal color, Warm and dry, No rash Results - Vitals Vitals: Vital Signs - 24 hr 01/25/20 01/25/20 01/25/20 18:51 19:46 20:00 Temperature 37 C Heart Rate 114 H 113 H Respiratory 20 20 17 Rate Blood Pressure 151/105 H 149/71 H O2 Saturation 96 95 01/25/20 01/25/20 20:13 20:46 Temperature Heart Rate 83 100 Respiratory 17 16 Rate Blood Pressure 135/88 H 124/71 O2 Saturation 98 95 Oxygen O2 Source Room air - Labs Labs: Laboratory Tests 01/25/20 01/25/20 01/25/20 19:08 19:08 19:35 WBC 13.1 H RBC 4.65 L Hgb 15.0 Hct 42.6 MCV 91.6 MCH 32.3 H MCHC 35.2 RDW 12.3 Plt Count 196 MPV 9.0 Neut # (Auto) 9.8 H Lymph # (Auto) 2.1 [place] # (Auto) 1.1 H Eos # (Auto) 0.0 Baso # (Auto) 0.1 Absolute Nucleated RBC 0.00 Nucleated RBC % 0.0 Sodium 134 L Potassium 3.9 Chloride 101 Carbon Dioxide 24 Anion Gap 9.0 BUN 11 Creatinine 0.6 Estimated GFR (MDRD) 152 Glucose 105 H Lactic Acid 0.7 Calcium 9.0 Total Bilirubin 1.5 H AST 21 ALT 34 Alkaline Phosphatase 48 Total Protein 8.5 H Albumin 4.5 Globulin 4.0 Albumin/Globulin Ratio 1.1 Lipase 38 - Rads (name of study) abd ct Radiology: Final report received (Diverticulitis involving the descending colon redemonstrated with slight interval increased inflammatory fat stranding no diverticular abscess or macroscopic free air is identified) PD MEDICAL DECISION MAKING - ED course Complexity details: reviewed results, re-evaluated patient, d/w patient, d/w family ED course: 34-year-old male returns to the emergency department with fever and worsening left-sided abdominal pain after being diagnosed with uncomplicated diverticulitis yesterday. On repeat exam he remains quite tender on the left side of his abdomen with mild rebound. Repeat CT scan shows that he has diverticulitis with some interval increase in inflammatory fat stranding but no abscess or macroscopic free air. Patient will be admitted to the hospitalist Dr. Hallman who has agreed to admit patient - Pt given 1 liter IVF. No lactate. mild leukocytosis. Zosyn ordered int he emergency department - Pain improved following dilaudid and he is hemodynamically stable Departure - Departure Disposition: ED Place in Observation Clinical Impression: Diverticulitis large intestine, Diverticulitis large intestine w/o perforation or abscess w/o bleeding, Failure of outpatient treatment Condition: Stable
[2020-01-25] MEDS ORDERED: IOVERSOL 320 100 ML VIAL IVP ONE ×2 (19:52→20:18)
--- NOTE | 2020-01-25 20:33 | CT Report ---
Reason: return for diverticulitis; r/o perf Procedure Date: 01/25/2020 Accession Number: [id number] / [id number] Procedure: CT - Abdomen/Pelvis W CPT Code: Final Report FULL RESULT: PROCEDURE: Abdomen/Pelvis W INDICATIONS: return for diverticulitis; r/o perf CONTRAST: IV CONTRAST: Optiray 320 ml: 100 PO CONTRAST: *NO PO CONTRAST TECHNIQUE: After the administration of oral and intravenous contrast, 5 mm thick sections acquired from the diaphragms to the symphysis. 5 mm thick coronal and sagittal reformats were acquired. For radiation dose reduction, the following was used: automated exposure control, adjustment of mA and/or kV according to patient size. COMPARISON: CT abdomen pelvis 01/24/2020. FINDINGS: Image quality: Excellent. ABDOMEN: Lung bases: There is mild dependent atelectasis. Heart size is normal. Solid organs: There is hypoattenuation of the liver consistent with fatty infiltration. Gallbladder appears within normal limits without calcified gallstones. Biliary system is non dilated. Pancreas enhances normally. No adrenal nodules. The spleen is normal in size. Kidneys demonstrate no hydronephrosis. Peritoneum and bowel: Small bowel loops demonstrate normal wall thickness and caliber. The appendix is normal in appearance. There is colonic diverticulosis with associated peridiverticular inflammatory fat stranding along the distal descending colon with segmental colonic wall thickening consistent with acute diverticulitis. There is slight interval increased inflammatory fat stranding compared to the recent prior study. Trace free fluid is demonstrated in the adjacent left paracolic gutter. No diverticular abscess or macroscopic free air. Nodes and vessels: No retroperitoneal or mesenteric adenopathy by size criteria. Aorta and inferior vena cava are normal in size. Miscellaneous: No ventral hernias. PELVIS: Genitourinary: Bladder wall thickness is normal. Miscellaneous: No inguinal hernias or adenopathy. Bones: No suspicious bony lesions. No vertebral body compression fractures. IMPRESSION: 1. Diverticulitis involving the descending colon redemonstrated with slight interval increased inflammatory fat stranding. No diverticular abscess or macroscopic free air identified. Reviewed by: Margarito Mata MD on 01/25/2020 8:32 PM PDT Approved by: Margarito Mata MD on 01/25/2020 8:32 PM PDT Station ID: [id number]
[2020-01-25] MEDS ORDERED: HYDROmorphone 0.5 MG/0.5 ML SYRINGE IVP PRN (20:41)
[2020-01-25] MEDS ORDERED: ONDANSETRON 4 MG/2 ML VIAL IVP PRN (20:41)
--- NOTE | 2020-01-25 20:55 | HISTORY & PHYSICAL EXAMINATION ---
Chief Complaint - Chief Complaint Chief Complaint: left lower quadrant abdominal pain History of Present Illness - Admitted From Admitted From:: [facility] [place] ED - History Obtained From Records Reviewed: yes History obtained from: patient - History of Present Illness HPI Comment/Other: Patient is a 34-year-old male who presented to the ED with complaint of left lower quadrant abdominal pain and cramps which started 2 days ago. It got worse yesterday so he presented to the emergency department where he had a CT scan of the abdomen pelvis done. It showed diverticulitis with no perforation or abscess. He was given a prescription of oral pain medication and antibiotics which included Flagyl and Cipro and discharged home. However today his pain worsened, he was febrile with temperature as high as 102 Fahrenheit at home and he was experiencing nausea and vomiting. As a result he returned to the ED where a CT scan was repeated. This again showed diverticulitis with no perforation or abscess. Making an argument for haven failed outpatient management he was started on IV antibiotics with Zosyn and given IV pain medication and presented for admission for further management. He had a previous episode of diverticulitis 6 years ago. He has undergone a colonoscopy in the past which he reports was unremarkable. There were no biopsies taken at the time. He denies any family history of irritable bowel disease. History - Past Medical History Cardiovascular: reports: Hypertension, [place] Respiratory: reports: Sleep apnea Neuro: reports: None Endocrine/Autoimmune: reports: None GI: reports: GERD, Diverticulitis : reports: None HEENT: reports: None Psych: reports: None Musculoskeletal: reports: None Derm: reports: None MRSA Hx?: No - Past Surgical History Other past surgical history: Patient denied any surgical history - Family & Social History Family History Comment/Other: Patient reports extensive history of heart disease on his paternal side Living arrangement: At home Living Situation: With family Social History Notes: He does not smoke. Occasionally he drinks alcohol and rarely uses marijuana - POLST Patient has POLST: No POLST Status: Full Code Meds/Allgy - Home Medications Home Medications: Ambulatory Orders Medication Instructions Recorded Confirmed Aspirin [Aspir 81] 81 mg PO DAILY 04/23/14 01/24/20 Lisinopril 20 mg PO DAILY 04/23/14 01/24/20 Ciprofloxacin HCl [Cipro] 500 mg PO BID #20 tablet 01/24/20 Hydrocodone/Acetaminophen 1 each PO Q6H PRN 1 Days #3 tablet 01/24/20 [Hydrocodon-Acetaminophen 5-325] metroNIDAZOLE [Flagyl] 500 mg PO BID #20 tablet 01/24/20 - Allergies Allergies/Adverse Reactions: Allergies Allergy/AdvReac Type Severity Reaction Status Date / Time No Known Drug Allergies Allergy Verified 01/25/20 18:55 Review of Systems - Constitutional Constitutional: reports: Fever. denies: Fatigue - Eyes Eyes: denies: Pain - Ears, Nose & Throat Ears, Nose & Throat: denies: Ear pain, Sore throat - Cardiovascular Cariovascular: denies: Irregular heart rate, Palpitations, Chest pain, Edema - Respiratory Respiratory: denies: Cough, Wheezing, SOB at rest, SOB with exertion - Gastrointestinal Gastrointestinal: reports: Abdominal pain, Nausea, Vomiting, Reflux/heartburn - Genitourinary Genitourinary: denies: Dysuria, Frequency, Urgency, Hematuria - Musculoskeletal Musculoskeletal: denies: Muscle pain, Back pain, Muscle aches - Integumentary Integumentary: denies: Rash, Pruritis, Lesions - Neurological Neurological: denies: General weakness - Psychiatric Psychiatric: denies: Depression, Anxiety - Endocrine Endocrine: denies: Polyuria, Polydypsia - Hematologic/Lymphatic Hematologic/Lymphatic: denies: Anemia, Bruising, Petechiae Prior Level of Functionality: He is independent of activities of daily living Exam - Vital Signs Vital Signs: Vital Signs x48h Temp Pulse Resp BP Pulse Ox 01/25/20 20:46 100 16 124/71 95 01/25/20 20:13 83 17 135/88 H 98 01/25/20 20:00 17 01/25/20 19:46 113 H 20 149/71 H 95 01/25/20 18:51 37 C 114 H 20 151/105 H 96 - Physical Exam General Appearance: positive: Alert, Moderate distress Eyes Bilateral: positive: PERRL, EOMI ENT: positive: No signs of dehydration Neck: positive: No JVD, Trachea midline Respiratory: positive: Chest non-tender, No respiratory distress, Breath sounds nml. negative: Wheezes, Rales, Rhonchi Cardiovascular: positive: Regular rate & rhythm, No murmur Abdomen: positive: Nml bowel sounds, Tenderness, Guarding Back: positive: Nml inspection Skin: positive: Color nml, No rash, Warm, Dry Extremities: positive: Non-tender, Full ROM, Nml appearance, No pedal edema Neurologic/Psychiatric: positive: Oriented x3, Mood/affect nml Conclusion/Plan - Problem List (1) Diverticulitis large intestine Conclusion/Plan: Patient made n.p.o. except for medications and sips. IV hydration with normal saline at 125 mils per hour. Pain management with Dilaudid. Zosyn ordered. Blood cultures pending. Patient was advised that he would need a colonoscopy in the future as an outpatient with possible biopsies to rule out irritable bowel disease. (2) Hypertension Conclusion/Plan: Will resume lisinopril once verified. - Lab Results Fish Bones: 01/25/20 19:08 01/25/20 19:08 Core Measures - Anticipated LOS I expect patient to be DC'd or transferred within 96 hours.: Yes - DVT/VTE - Prophylaxis VTE/DVT Device ordered at admit?: Yes
[2020-01-25 21:07] LABS: BILIRUBIN,URINE NEGATIVE (NEGATIVE); GLUCOSE, URINE (UA) NEGATIVE (NEGATIVE); KETONES,URINE (UA) NEGATIVE (NEGATIVE); LEUKOCYTE ESTERASE, URINE NEGATIVE (NEGATIVE); NITRITE,URINE NEGATIVE (NEGATIVE); OCCULT BLOOD,URINE NEGATIVE (NEGATIVE); PH,URINE 6.5 PH (5.0-7.5); PROTEIN,URINE NEGATIVE (NEGATIVE); UROBILINOGEN,URINE 0.2 (NORMAL) E.U./dL (NORMAL)
[2020-01-25 21:08] LABS: CLARITY,URINE CLEAR (CLEAR)
[2020-01-25] MEDS: SODIUM CHLORIDE 0.9% 1,000 ML IV SCH (21:39)
[2020-01-25] MEDS: diphenhydrAMINE INJ 50 MG/ML VIAL IVP PRN (22:38)
[2020-01-25] MEDS: HYDROmorphone 0.5 MG/0.5 ML SYRINGE IVP PRN (22:38)
[2020-01-26] MEDS: PIPERACILLIN/TAZOBACTAM 3.375 GM in SODIUM CHLORIDE 0.9% MINIBAG 100 ML IV SCH ×3 (01:16→16:01)
[2020-01-26] MEDS: HYDROcod/ACETAM 5/325 MG TABLET PO PRN ×5 (01:16→18:53)
[2020-01-26] MEDS: HYDROmorphone 0.5 MG/0.5 ML SYRINGE IVP PRN ×2 (01:16→03:57)
[2020-01-26] MEDS: SODIUM CHLORIDE FLUSH 0.9% 10 ML SYRINGE IVP SCH ×3 (01:17→16:16)
[2020-01-26] MEDS: SODIUM CHLORIDE FLUSH 0.9% 10 ML SYRINGE IVP PRN ×2 (01:18→06:41)
[2020-01-26] MEDS: diphenhydrAMINE INJ 50 MG/ML VIAL IVP PRN ×3 (04:22→17:12)
[2020-01-26 04:43] LABS: BASOPHILS % (AUTO) 0.4 %; EOSINOPHILS % (AUTO) 0.3 %; LYMPHOCYTES # (AUTO) 2.2 10^3/uL (1.5-3.5); LYMPHOCYTES % (AUTO) 19.2 %; MEAN CORPUSCULAR HEMOGLOBIN 30.7 pg (27.0-31.0); MEAN CORPUSCULAR HGB CONC 33.2 g/dL (32.0-36.0); MEAN CORPUSCULAR VOLUME 92.5 fL (80.0-94.0); MEAN PLATELET VOLUME 9.2 fL (7.4-11.4); MONOCYTES # (AUTO) 1.1 10^3/uL (0.0-1.0); MONOCYTES % (AUTO) 9.2 %; NEUTROPHILS % (AUTO) 70.3 %; PLT - PLATELET COUNT 181 10^3/uL (130-450); RED BLOOD COUNT 4.24 10^6/uL (4.70-6.10); RED CELL DISTRIBUTION WIDTH 12.6 % (12.0-15.0); WHITE BLOOD COUNT 11.4 x10^3/uL (4.8-10.8)
[2020-01-26 04:54] LABS: CALCIUM 8.1 mg/dL (8.5-10.3); CREATININE 0.7 mg/dL (0.6-1.2)
[2020-01-26] MEDS: SODIUM CHLORIDE 0.9% 1,000 ML IV SCH ×3 (05:14→18:54)
[2020-01-26] MEDS: PANTOPRAZOLE 40 MG VIAL IVP SCH (06:41)
[2020-01-26] MEDS ORDERED: HYDROmorphone 1 MG/ML CARPUJECT IVP PRN (07:38)
[2020-01-26] MEDS ORDERED: HYDROmorphone 0.5 MG/0.5 ML SYRINGE IVP ONE (08:00)
--- NOTE | 2020-01-26 09:10 | PHARMACY PROGRESS NOTE ---
- Best Possible Medication History Admit Date and Time: 01/25/202040 Processed by: Pharmacy Medication History completed: Yes Patient Interview: Completed Secondary Source(s): Pharmacy records, Insurance records As the person ultimately responsible for medication therapy, providers are able to order a medication from an existing home medication list in [facility] via the "Reconcile Routine" prior to Confirmation of that medication by server support technician. Such practice is discouraged except when the physician, in their clinical judgment, deems that a medical need exists for a medication without regard to previous use.
--- NOTE | 2020-01-26 10:33 | PROVIDER PROGRESS NOTE ---
Assessment/Plan - Problem List (1) Diverticulitis large intestine w/o perforation or abscess w/o bleeding Assessment/Plan: 01/25 Patient still report he had mild to moderate lower quadrant abdominal pain, patient denied fever or chills, he also has no appetite. His WBC is become 11.4 from 13.5 at admission. We will continue Zosyn antibiotics, continue intravenous IV fluids, continue pain management, (2) Hypertension Conclusion/Plan: stable, Will resume lisinopril once verified. (3) loss of appetite Patient report loss of his appetite now, it is likely secondary to the acute diverticulitis and the infection, start with clear liquid diet and advanced as the patient tolerated (4)obesity Patient has BMI 42.5, Discussed with the patient for loss of weight, patient understood and will followup to do - Current Meds Current Meds: Current Medications Generic Name Dose Route Start Last Admin Trade Name Freq PRN Reason Stop Dose Admin Hydrocodone Bitart/Acetaminophen 1 tab 01/25/20 20:41 01/26/20 10:11 [place] 5/325 PO 1 tab Q4HR PRN Administration Pain 5 to 7 Diphenhydramine HCl 25 mg 01/25/20 22:24 01/26/20 04:22 Benadryl Inj IVP 25 mg Q6H PRN Administration Allergy Symptoms Piperacillin Sod/Tazobactam 100 mls @ 25 mls/hr 01/26/20 00:00 01/26/20 07:46 Sod 3.375 gm/ Sodium Chloride IV 25 mls/hr Q8H NALINI Administration Sodium Chloride 1,000 mls @ 100 mls/hr 01/26/20 07:38 01/26/20 07:48 Normal Saline 0.9% IV 01/27/20 03:37 Not Given .Q10H NALINI Pantoprazole Sodium 40 mg 01/26/20 07:00 01/26/20 06:41 Protonix IVP 40 mg QDAC NALINI Administration Sodium Chloride 10 ml 01/25/20 20:41 01/26/20 06:41 Normal Saline Flush 0.9% IVP 10 ml PRN PRN Administration NEEDED PER PROVIDER ORDERS Sodium Chloride 10 ml 01/26/20 01:00 01/26/20 07:47 Normal Saline Flush 0.9% IVP 10 ml 0100,0900,1700 NALINI Administration - Lab Result Fish Bone Diagrams: 01/26/20 04:15 01/26/20 04:15 - Additional Planning My Orders: My Active Orders 01/26/20 DRUG SCREEN MEDICAL (MUDS) [URIN] Urgent 01/26/20 07:38 Sodium Chloride 0.9% [Normal Saline 0.9%] 1,000 ml IV 100 mls/hr 01/26/20 12:00 HYDROmorphone INJ CARP [Dilaudid Inj Carp] 1 mg IVP Q4H PRN 01/26/20 Breakfast Clear Liquid Diet [DIET] Subjective - Subjective Patient Reports: Feeling Better Objective Vital Signs: Vital Signs - 24 hr 01/25/20 01/25/20 01/25/20 18:51 19:46 20:00 Temperature 37 C Heart Rate 114 H 113 H Heart Rate [ Brachial] Respiratory 20 20 17 Rate Blood Pressure 151/105 H 149/71 H Blood Pressure [Right Brachial artery] O2 Saturation 96 95 01/25/20 01/25/20 01/25/20 20:13 20:46 20:56 Temperature Heart Rate 83 100 Heart Rate [ Brachial] Respiratory 17 16 17 Rate Blood Pressure 135/88 H 124/71 Blood Pressure [Right Brachial artery] O2 Saturation 98 95 01/25/20 01/25/20 01/26/20 21:25 23:45 03:47 Temperature 37.5 C 37.2 C 36.3 C L Heart Rate 101 H Heart Rate [ 99 102 H Brachial] Respiratory 17 18 16 Rate Blood Pressure 139/72 H Blood Pressure 144/89 H 121/67 [Right Brachial artery] O2 Saturation 96 97 97 01/26/20 01/26/20 06:18 08:15 Temperature 36.3 C L 37.0 C Heart Rate 102 H Heart Rate [ 85 Brachial] Respiratory 16 18 Rate Blood Pressure Blood Pressure 128/67 [Right Brachial artery] O2 Saturation 97 98 Oxygen O2 Source Room air I&O (Last 24 Hrs): Intake and Output Totals x24h 01/24/20 01/25/20 01/26/20 23:59 23:59 23:59 Intake Total 1100 1227.917 Balance 1100 1227.917 General: Alert, Oriented x3, No acute distress HEENT: Atraumatic Neck: Supple Lymphatic: no adenopathy Neuro: Alert, Non Focal, Oriented Times 3 Cardiovascular: Regular rate, Normal S1, Normal S2 Respiratory: Chest non-tender, No respiratory distress, Breath sounds nml Abdomen: Normal bowel sounds, Soft, No tenderness Extremities: Normal pulses - Results Results: Laboratory Results WBC 11.4 x10^3/uL (4.8-10.8) H 01/26/20 04:15 RBC 4.24 10^6/uL (4.70-6.10) L 01/26/20 04:15 Hgb 13.0 g/dL (14.0-18.0) L 01/26/20 04:15 Hct 39.2 % (42.0-52.0) L 01/26/20 04:15 MCV 92.5 fL (80.0-94.0) 01/26/20 04:15 MCH 30.7 pg (27.0-31.0) 01/26/20 04:15 MCHC 33.2 g/dL (32.0-36.0) 01/26/20 04:15 RDW 12.6 % (12.0-15.0) 01/26/20 04:15 Plt Count 181 10^3/uL (130-450) 01/26/20 04:15 MPV 9.2 fL (7.4-11.4) 01/26/20 04:15 Neut # (Auto) 8.0 10^3/uL (1.5-6.6) H 01/26/20 04:15 Lymph # (Auto) 2.2 10^3/uL (1.5-3.5) 01/26/20 04:15 [place] # (Auto) 1.1 10^3/uL (0.0-1.0) H 01/26/20 04:15 Eos # (Auto) 0.0 10^3/uL (0.0-0.7) 01/26/20 04:15 Baso # (Auto) 0.0 10^3/uL (0.0-0.1) 01/26/20 04:15 Absolute Nucleated RBC 0.00 x10^3/uL 01/26/20 04:15 Nucleated RBC % 0.0 /100WBC 01/26/20 04:15 Sodium 136 mmol/L (135-145) 01/26/20 04:15 Potassium 3.7 mmol/L (3.5-5.0) 01/26/20 04:15 Chloride 104 mmol/L (101-111) 01/26/20 04:15 Carbon Dioxide 24 mmol/L (21-32) 01/26/20 04:15 Anion Gap 8.0 (6-13) 01/26/20 04:15 BUN 11 mg/dL (6-20) 01/26/20 04:15 Creatinine 0.7 mg/dL (0.6-1.2) 01/26/20 04:15 Estimated GFR (MDRD) 128 (>89) 01/26/20 04:15 Glucose 106 mg/dL (70-100) H 01/26/20 04:15 Lactic Acid 0.7 mmol/L (0.5-2.2) 01/25/20 19:35 Calcium 8.1 mg/dL (8.5-10.3) L 01/26/20 04:15 Total Bilirubin 1.5 mg/dL (0.2-1.0) H 01/25/20 19:08 AST 21 IU/L (10-42) 01/25/20 19:08 ALT 34 IU/L (10-60) 01/25/20 19:08 Alkaline Phosphatase 48 IU/L (42-121) 01/25/20 19:08 Total Protein 8.5 g/dL (6.7-8.2) H 01/25/20 19:08 Albumin 4.5 g/dL (3.2-5.5) 01/25/20 19:08 Globulin 4.0 g/dL (2.1-4.2) 01/25/20 19:08 Albumin/Globulin Ratio 1.1 (1.0-2.2) 01/25/20 19:08 Lipase 38 U/L (22-51) 01/25/20 19:08 Urine Color YELLOW 01/25/20 21:00 Urine Clarity CLEAR (CLEAR) 01/25/20 21:00 Urine pH 6.5 PH (5.0-7.5) 01/25/20 21:00 Ur Specific [place] <=1.005 (1.002-1.030) 01/25/20 21:00 Urine Protein NEGATIVE mg/dL (NEGATIVE) 01/25/20 21:00 Urine Glucose (UA) NEGATIVE mg/dL (NEGATIVE) 01/25/20 21:00 Urine Ketones NEGATIVE mg/dL (NEGATIVE) 01/25/20 21:00 Urine Occult Blood NEGATIVE (NEGATIVE) 01/25/20 21:00 Urine Nitrite NEGATIVE (NEGATIVE) 01/25/20 21:00 Urine Bilirubin NEGATIVE (NEGATIVE) 01/25/20 21:00 Urine Urobilinogen 0.2 (NORMAL) E.U./dL (NORMAL) 01/25/20 21:00 Ur Leukocyte Esterase NEGATIVE (NEGATIVE) 01/25/20 21:00 Ur Microscopic Review NOT INDICATED 01/25/20 21:00 Urine Culture Comments NOT INDICATED 01/25/20 21:00 ABX Reporting Has patient been on IV antibiotics over the past 48 hours?: Yes Current Medications - Current Medications Current Medications: Active Medications Hydrocodone Bitart/Acetaminophen ([place] 5/325) 1 tab PO Q4HR PRN PRN Reason: Pain 5 to 7 Last Admin: 01/26/20 10:11 Dose: 1 tab Diphenhydramine HCl (Benadryl Inj) 25 mg IVP Q6H PRN PRN Reason: Allergy Symptoms Last Admin: 01/26/20 04:22 Dose: 25 mg Hydromorphone HCl (Dilaudid Inj Carp) 1 mg IVP Q4H PRN PRN Reason: Pain 8 to 10 Piperacillin Sod/Tazobactam (Sod 3.375 gm/ Sodium Chloride) 100 mls @ 25 mls/hr IV Q8H [facility] Last Admin: 01/26/20 07:46 Dose: 25 mls/hr Sodium Chloride (Normal Saline 0.9%) 1,000 mls @ 100 mls/hr IV .Q10H [facility] Stop: 01/27/20 03:37 Last Admin: 01/26/20 07:48 Dose: Not Given Ondansetron HCl (Zofran Inj) 4 mg IVP Q6HR PRN PRN Reason: Nausea / Vomiting Pantoprazole Sodium (Protonix) 40 mg IVP QDAC [facility] Last Admin: 01/26/20 06:41 Dose: 40 mg Sodium Chloride (Normal Saline Flush 0.9%) 10 ml IVP PRN PRN PRN Reason: NEEDED PER PROVIDER ORDERS Last Admin: 01/26/20 06:41 Dose: 10 ml Sodium Chloride (Normal Saline Flush 0.9%) 10 ml IVP 0100,0900,1700 [facility] Last Admin: 01/26/20 07:47 Dose: 10 ml Aspirin [Aspir 81] 81 mg PO DAILY 04/23/14 Lisinopril 20 mg PO DAILY 04/23/14 Ciprofloxacin HCl [Cipro] 500 mg PO [id number] 01/26/20 Hydrocodone/Acetaminophen [Hydrocodon-Acetaminophen 5-325] 1 tab PO Q6HX3 PRN 01/26/20 metroNIDAZOLE [Flagyl] 500 mg PO [id number] 01/26/20
[2020-01-26] MEDS: HYDROmorphone 1 MG/ML CARPUJECT IVP PRN ×3 (12:01→20:48)
[2020-01-26 14:23] LABS: MUDS CUTOFF CONCENTRATIONS CUTOFF CONC BELOW:
[2020-01-26 14:34] LABS: AMPHETAMINE SCREEN,URINE NEGATIVE (NEGATIVE); BENZODIAZEPINES SCREEN, URINE NEGATIVE (NEGATIVE); COCAINE SCREEN URINE NEGATIVE (NEGATIVE); METHADONE SCREEN, URINE NEGATIVE (NEGATIVE); METHAMPHETAMINES SCREEN, URINE NEGATIVE (NEGATIVE); OPIATE SCREEN, URINE POSITIVE (NEGATIVE); OXYCODONE SCREEN, URINE NEGATIVE (NEGATIVE); PROPOXYPHENE SCREEN, URINE NEGATIVE (NEGATIVE); TRICYCLIC ANTIDEPRESSANT,URINE NEGATIVE (NEGATIVE)
[2020-01-27] MEDS: diphenhydrAMINE INJ 50 MG/ML VIAL IVP PRN (00:57)
[2020-01-27] MEDS: PIPERACILLIN/TAZOBACTAM 3.375 GM in SODIUM CHLORIDE 0.9% MINIBAG 100 ML IV SCH ×2 (00:57→09:03)
[2020-01-27] MEDS: HYDROmorphone 1 MG/ML CARPUJECT IVP PRN (00:59)
[2020-01-27] MEDS: SODIUM CHLORIDE FLUSH 0.9% 10 ML SYRINGE IVP SCH ×2 (02:01→04:59)
[2020-01-27] MEDS: HYDROcod/ACETAM 5/325 MG TABLET PO PRN (04:57)
[2020-01-27] MEDS: PANTOPRAZOLE 40 MG VIAL IVP SCH (04:59)
[2020-01-27] MEDS: SODIUM CHLORIDE FLUSH 0.9% 10 ML SYRINGE IVP PRN (04:59)
[2020-01-27 05:23] LABS: BASOPHILS % (AUTO) 0.4 %; EOSINOPHILS # (AUTO) 0.1 10^3/uL (0.0-0.7); EOSINOPHILS % (AUTO) 0.9 %; HGB - HEMOGLOBIN 12.5 g/dL (14.0-18.0); LYMPHOCYTES # (AUTO) 2.1 10^3/uL (1.5-3.5); LYMPHOCYTES % (AUTO) 30.7 %; MEAN CORPUSCULAR HEMOGLOBIN 31.3 pg (27.0-31.0); MEAN CORPUSCULAR HGB CONC 33.8 g/dL (32.0-36.0); MEAN CORPUSCULAR VOLUME 92.7 fL (80.0-94.0); MEAN PLATELET VOLUME 9.2 fL (7.4-11.4); MONOCYTES # (AUTO) 0.5 10^3/uL (0.0-1.0); MONOCYTES % (AUTO) 7.5 %; NEUTROPHILS # (AUTO) 4.2 10^3/uL (1.5-6.6); NEUTROPHILS % (AUTO) 60.1 %; PLT - PLATELET COUNT 169 10^3/uL (130-450); RED BLOOD COUNT 3.99 10^6/uL (4.70-6.10); RED CELL DISTRIBUTION WIDTH 12.2 % (12.0-15.0)
[2020-01-27 05:35] LABS: CREATININE 0.7 mg/dL (0.6-1.2)
[2020-01-27 08:07] VITALS: BP 125/76
--- NOTE | 2020-01-27 11:50 | Discharge Plan ---
Discharge Plan Problem Reviewed?: Yes Disposition: Home, Self Care Condition: Stable Prescriptions: Sulfamethoxazole/Trimethoprim [Bactrim 400-80 mg Tablet] 1 each PO BID #10 tablet Diet: Regular (Low fiber and no seed diet) Activity Restrictions: Activity as Tolerated Shower Restrictions: No Driving Restrictions: No Instruction Topics: Diverticulitis Dc Health Concerns: You were admitted for treatment of diverticulitis that was not responding to oral antibiotics. It improved with stronger iv antibiotics. Please complete a (different) course of antibiotics, with Bactrim for 5 days, which was prescribed electronically to your pharmacy. Also please complete the Metronidazole (Flagyl) tablets that you have at home, until they are done. Advance your diet as tolerated, eating a low fiber and a no seed diet. Resume all your other medications that you are taking before hospitalization. Plan of Treatment: As above. Care Goals: Improvement in symptoms and stabilization are the goals. Assessment: The patient understands and is agreeable with the plan. Additional Instructions or Follow Up instructions: Please see your PCP in 5 to 10 days for hospital follow-up. If you have new or worsening symptoms, call your PCP or come to the ER. No Smoking: If you smoke, Please STOP! Call for help. Follow-up with: Kareem Tao DO [Primary Care Provider] -
--- NOTE | 2020-01-27 11:59 | DISCHARGE SUMMARY ---
Discharge Summary Admit Date: 01/25/20 Discharge Date: 01/27/20 Discharging Provider: Dr Maral Paz Primary Care Provider: Dr Kareem Tao Code Status: Do Not Attempt Resuscitation Condition at Discharge: Stable Discharge Disposition: 01 Home, Self Care - HPI History of Present Illness: From the admission H&P of Dr. Alexandria Kearneyu: Patient is a 34-year-old male who presented to the ED with complaint of left lower quadrant abdominal pain and cramps which started 2 days ago. It got worse yesterday so he presented to the emergency department where he had a CT scan of the abdomen pelvis done. It showed diverticulitis with no perforation or abscess. He was given a prescription of oral pain medication and antibiotics which included Flagyl and Cipro and discharged home. However today his pain worsened, he was febrile with temperature as high as 102 Fahrenheit at home and he was experiencing nausea and vomiting. As a result he returned to the ED where a CT scan was repeated. This again showed diverticulitis with no perforation or abscess. Since he failed outpatient management, he was started on IV antibiotics with Zosyn and given IV pain medication and presented for admission for further management. He had a previous episode of diverticulitis 6 years ago. He has undergone a colonoscopy in the past which he reports was unremarkable. There were no biopsies taken at the time. He denies any family history of irritable bowel disease. - HOSPITAL COURSE Hospital Course: (1) Diverticulitis large intestine w/o perforation or abscess w/o bleeding He was started on bowel rest, prn pain meds, iv fluids and iv antibiotics with Pip/Tazo. He had blood cultures done at admission which were negative to date. Each day he slowly had less abdominal pain, but still had a fever on 01/26/2020, and reported no appetite. His WBC improved to 11.4 from 13.5 at admission. After final blood cultures were negative, and 24 hours after his last fever, he was discharged home to finish a course of Bactrim and Flagyl. He was advised to advance his diet very slowly, and to avoid high-fiber foods and difficult to digest foods and seeds. (2) Hypertension BP was stable while here, using his home dose of Lisinopril. (3) Morbid obesity, BMI 42.5 Patient has a BMI of 42.5. Discussed with the patient recommendation of loss of weight, which the patient understood and will followup to do. - ALLERGIES Allergies/Adverse Reactions: Allergies Allergy/AdvReac Type Severity Reaction Status Date / Time No Known Drug Allergies Allergy Verified 01/25/20 18:55 - MEDICATIONS Home Medications: Ambulatory Orders Medication Instructions Recorded Confirmed Aspirin [Aspir 81] 81 mg PO DAILY 04/23/14 01/26/20 Lisinopril 20 mg PO DAILY 04/23/14 01/26/20 Hydrocodone/Acetaminophen 1 tab PO Q6HX3 PRN 01/26/20 01/26/20 [Hydrocodone-Acetamin 5-325 mg] metroNIDAZOLE [Flagyl] 500 mg PO [id number] 01/26/20 01/26/20 Sulfamethoxazole/Trimethoprim 1 each PO BID #10 tablet 01/27/20 [Bactrim 400-80 mg Tablet] - PHYSICAL EXAM AT DISCHARGE General Appearance: positive: No acute distress, Alert Eyes Bilateral: positive: Normal inspection, EOMI ENT: positive: ENT inspection nml, No signs of dehydration Neck: positive: Nml inspection Respiratory: positive: No respiratory distress Cardiovascular: positive: Regular rate & rhythm, No murmur Abdomen: positive: Non-tender, Nml bowel sounds, Other (Obese with a pannus) Skin: positive: Color nml Extremities: positive: No pedal edema Neurologic/Psychiatric: positive: Oriented x3, Other (Non-focal) - LABS Result Diagrams: 01/27/20 05:00 01/27/20 05:00 - FOLLOW UP Follow Up: He was advised to see his PCP in 5 to 10 days for hospital follow-up. - TIME SPENT Time Spent in Discharge (Minutes): 40
== END 2020-01-27 13:09 | disposition home or self-care (01) | DRG 392 ==
LOC: ED 18:49 → MS2 20:41
PROVIDERS: ADMIT Internal Medicine; ATTEND Internal Medicine
DX: K57.32 Diverticulitis of large intestine without perforation or abscess without bleeding (principal); Z68.41 Body mass index [BMI] 40.0-44.9, adult; I10 Essential (primary) hypertension; E66.01 Morbid (severe) obesity due to excess calories; G47.30 Sleep apnea, unspecified; Z79.82 Long term (current) use of aspirin
CPT/HCPCS: 36415; 74177; 80048; 80053; 80306; 81003; 83605; 83690; 85025; 87040; 96374; 99284; 99285; A9270; J1170; J1200; Q9967; 81001; 87086

== ENCOUNTER 2020-12-12 08:00 | Outpatient (CLI) | payer OTHER ==
[2020-12-12 11:59] LABS: BASOPHILS # (AUTO) 0.1 10^3/uL (0.0-0.1); BASOPHILS % (AUTO) 0.9 %; EOSINOPHILS # (AUTO) 0.1 10^3/uL (0.0-0.7); EOSINOPHILS % (AUTO) 0.9 %; HCT - HEMATOCRIT 44.8 % (42.0-52.0); LYMPHOCYTES # (AUTO) 2.1 10^3/uL (1.5-3.5); LYMPHOCYTES % (AUTO) 36.9 %; MEAN CORPUSCULAR HEMOGLOBIN 31.4 pg (27.0-31.0); MEAN CORPUSCULAR HGB CONC 33.5 g/dL (32.0-36.0); MEAN CORPUSCULAR VOLUME 93.7 fL (80.0-94.0); MEAN PLATELET VOLUME 9.8 fL (7.4-11.4); MONOCYTES # (AUTO) 0.5 10^3/uL (0.0-1.0); MONOCYTES % (AUTO) 9.3 %; NEUTROPHILS % (AUTO) 51.7 %; PLT - PLATELET COUNT 222 10^3/uL (130-450); RED BLOOD COUNT 4.78 10^6/uL (4.70-6.10); WHITE BLOOD COUNT 5.7 x10^3/uL (4.8-10.8)
[2020-12-12 12:39] LABS: ALBUMIN 4.5 g/dL (3.2-5.5); ALBUMIN/GLOBULIN RATIO 1.3 (1.0-2.2); ALKALINE PHOSPHATASE 42 IU/L (42-121); ALT ALANINE AMINOTRANSFERASE 51 IU/L (10-60); AST ASPARTATE AMINOTRANSFERASE 32 IU/L (10-42); BILIRUBIN,TOTAL 0.8 mg/dL (0.2-1.0); BUN - BLOOD UREA NITROGEN 20 mg/dL (6-20); CALCIUM 9.1 mg/dL (8.5-10.3); CARBON DIOXIDE - CO2 27 mmol/L (21-32); CHLORIDE 103 mmol/L (101-111); CHOL/HDL RATIO 4.2 (<5.0); CHOLESTEROL 184 mg/dL; CREATININE 0.7 mg/dL (0.6-1.2); GFR - MDRD 127 (>89); GLUCOSE 100 mg/dL (70-100); HDL CHOLESTEROL 44 mg/dL; LDL CHOLESTEROL,CALCULATED 110 mg/dL; LDL/HDL RATIO 2.5 (<3.6); POTASSIUM 4.2 mmol/L (3.5-5.0); SODIUM 138 mmol/L (135-145); TOTAL PROTEIN 7.9 g/dL (6.7-8.2); TRIGLYCERIDES 150 mg/dL; VLDL CHOLESTEROL 30 mg/dL
== END 2020-12-12 23:59 | disposition home or self-care (01) ==
LOC: LAB.WCP 08:00
PROVIDERS: ATTEND Family Medicine
DX: E78.5 Hyperlipidemia, unspecified (principal); Z82.49 Family history of ischemic heart disease and other diseases of the circulatory system
CPT/HCPCS: 36415; 80053; 80061; 83721; 85025

== ENCOUNTER 2021-03-26 23:50 | Emergency (ER) | payer OTHER ==
[2021-03-26] MEDS ORDERED: IPRATROPIUM/ALBUTEROL 3 ML NEB INH STA (23:57)
--- NOTE | 2021-03-27 00:19 | ED Physician Documentation ---
PD HPI DYSPNEA - Stated complaint Stated Complaint: SOA - Chief complaint Chief Complaint: Resp - History obtained from History obtained from: Patient (1) - History of Present Illness Timing - onset: Enter time (15:00), Today Timing - onset during: Light activity Timing - details: Abrupt onset Pain level now: 4 Worsened by: Exertion, Other (deep inspiration) Associated symptoms: Chest pain / discomfort. No: Fever, Cough, Wheezing Similar symptoms before: Has not had sx before Recently seen: Not recently seen - Additional information Additional information: c/o rapid onset dyspnea and anterior chest pain at 3 PM while at work. pain has a pleuritic component. denies leg swelling. he used his albuterol MDI without improvement, although he notes it . Review of Systems Constitutional: reports: Reviewed and negative Cardiac: reports: Chest pain / pressure. denies: Palpitations, Pedal edema, Calf pain Respiratory: reports: Dyspnea. denies: Cough, Hemoptysis, Wheezing GI: reports: Reviewed and negative Musculoskeletal: denies: Extremity swelling PD PAST MEDICAL HISTORY - Past Medical History Past Medical History: Yes Cardiovascular: Hypertension, [place] Respiratory: Asthma, Sleep apnea Neuro: None Endocrine/Autoimmune: None GI: GERD, Diverticulitis : None HEENT: None Psych: None Musculoskeletal: None Derm: None - Past Surgical History Past Surgical History: No - Present Medications Home Medications: Ambulatory Orders Medication Instructions Recorded Confirmed Lisinopril 20 mg PO DAILY 04/23/14 03/27/21 Albuterol Sulf [Ventolin Hfa 1 - 2 puffs INH Q4HR PRN #1 inhaler 03/27/21 Inhaler] - Allergies Allergies/Adverse Reactions: Allergies Allergy/AdvReac Type Severity Reaction Status Date / Time No Known Drug Allergies Allergy Verified 03/26/21 23:52 - Social History Does the pt smoke?: No Smoking Status: Never smoker Does the pt drink ETOH?: Yes Does the pt have substance abuse?: No - Immunizations Immunizations are current?: Yes - POLST Patient has POLST: No POLST Status: Full Code PD ED PE NORMAL - Vitals Vital signs reviewed: Yes - General General: Alert and oriented X 3, No acute distress, Well developed/nourished - HEENT HEENT: Moist mucous membranes - Cardiac Cardiac: RRR, No murmur, No gallop, No rub - Respiratory Respiratory: No respiratory distress, Clear bilaterally - Abdomen Abdomen: Soft, Non tender - Extremities Extremities: No edema Results - Vitals Vitals: Oxygen O2 Source Room air - EKG (time done) No standard instances Rate: Rate (enter#) (95) Rhythm: NSR [place]: Normal Intervals: Normal [place] QRS: Normal Ischemia: Normal ST segments, Q waves (isolated III) - Labs Labs: Laboratory Tests 03/27/21 03/27/21 03/27/21 00:52 00:52 00:52 WBC 7.4 RBC 4.67 L Hgb 14.9 Hct 43.0 MCV 92.1 MCH 31.9 H MCHC 34.7 RDW 12.5 Plt Count 214 MPV 9.2 Neut # (Auto) 3.6 Lymph # (Auto) 3.2 [place] # (Auto) 0.5 Eos # (Auto) 0.1 Baso # (Auto) 0.1 Absolute Nucleated RBC 0.00 Nucleated RBC % 0.0 D-Dimer Sodium 138 Potassium 3.3 L Chloride 104 Carbon Dioxide 24 Anion Gap 10.0 BUN 12 Creatinine 0.7 Estimated GFR (MDRD) 127 Glucose 142 H Calcium 9.0 Troponin I High Sens 2.9 03/27/21 01:44 WBC RBC Hgb Hct MCV MCH MCHC RDW Plt Count MPV Neut # (Auto) Lymph # (Auto) [place] # (Auto) Eos # (Auto) Baso # (Auto) Absolute Nucleated RBC Nucleated RBC % D-Dimer < 200.0 L Sodium Potassium Chloride Carbon Dioxide Anion Gap BUN Creatinine Estimated GFR (MDRD) Glucose Calcium Troponin I High Sens - Rads (name of study) chest xray Radiology: Prelim report reviewed, See rad report PD MEDICAL DECISION MAKING - ED course Complexity details: reviewed results, re-evaluated patient, considered differential, d/w patient ED course: c/o pleuritic chest pain with dyspnea. he is in NAD during ED stay with normal vital signs. lungs CTA bilaterally. given duoneb without noticeable improvement in symptoms per patient. His EKG and blood tests are unremarkable (includes troponin; incidental note of mild hypokalemia for which he is given PO potassium). CXR is without acute findings such as pneumothorax, infiltrate, or wide mediastinum. d-dimer is normal. results d/w patient and reviewed concepts of chest pain unknown origin, given return precautions and encouraged to follow up with PMD Departure - Departure Disposition: 01 Home, Self Care Clinical Impression: Chest pain, Dyspnea Condition: Good Instructions: ED Chest Pain Atypical Unkn Cause, ED Dyspnea Shortness of Breath Follow-Up: Kareem Tao DO [Primary Care Provider] - Prescriptions: Albuterol Sulf [Ventolin Hfa Inhaler] 1 - 2 puffs INH Q4HR PRN #1 inhaler PRN Reason: Shortness Of Air/Wheezing Discharge Date/Time: 03/27/21 02:52
[2021-03-27 00:59] LABS: BASOPHILS # (AUTO) 0.1 10^3/uL (0.0-0.1); BASOPHILS % (AUTO) 0.7 %; EOSINOPHILS # (AUTO) 0.1 10^3/uL (0.0-0.7); EOSINOPHILS % (AUTO) 0.7 %; HGB - HEMOGLOBIN 14.9 g/dL (14.0-18.0); LYMPHOCYTES # (AUTO) 3.2 10^3/uL (1.5-3.5); LYMPHOCYTES % (AUTO) 43.2 %; MEAN CORPUSCULAR HEMOGLOBIN 31.9 pg (27.0-31.0); MEAN CORPUSCULAR HGB CONC 34.7 g/dL (32.0-36.0); MEAN CORPUSCULAR VOLUME 92.1 fL (80.0-94.0); MEAN PLATELET VOLUME 9.2 fL (7.4-11.4); MONOCYTES # (AUTO) 0.5 10^3/uL (0.0-1.0); MONOCYTES % (AUTO) 6.6 %; NEUTROPHILS # (AUTO) 3.6 10^3/uL (1.5-6.6); NEUTROPHILS % (AUTO) 48.5 %; PLT - PLATELET COUNT 214 10^3/uL (130-450); RED BLOOD COUNT 4.67 10^6/uL (4.70-6.10); RED CELL DISTRIBUTION WIDTH 12.5 % (12.0-15.0); WHITE BLOOD COUNT 7.4 x10^3/uL (4.8-10.8)
[2021-03-27 01:22] LABS: CREATININE 0.7 mg/dL (0.6-1.2); POTASSIUM 3.3 mmol/L (3.5-5.0)
[2021-03-27] MEDS ORDERED: POTASSIUM CHLORIDE 20 MEQ TABLET PO STA (02:33)
[2021-03-27 02:51] VITALS: BP 121/72
--- NOTE | 2021-03-27 08:18 | XRAY Report ---
PROCEDURE: Chest 2 View X-Ray INDICATIONS: Chest pain, dyspnea TECHNIQUE: 2 view(s) of the chest. COMPARISON: 04/23/2019 FINDINGS: Surgical changes and devices: None. Lungs and pleura: No pleural effusions or pneumothorax. Lungs are clear. Mediastinum: Mediastinal contours are normal. Heart size is normal. Bones and chest wall: No suspicious bony abnormalities. Soft tissues appear unremarkable. IMPRESSION: No acute cardiopulmonary process demonstrated radiographically. Reviewed by: Villa Patel MD on 03/27/2021 8:16 AM PDT Approved by: Villa Patel MD on 03/27/2021 8:16 AM PDT Station ID: [id number]
== END 2021-03-27 02:52 | disposition home or self-care (01) ==
LOC: ED 23:50
DX: R07.81 Pleurodynia (principal); R06.00 Dyspnea, unspecified; E87.6 Hypokalemia; I10 Essential (primary) hypertension; I25.2 Old myocardial infarction; J45.909 Unspecified asthma, uncomplicated
CPT/HCPCS: 36415; 71046; 80048; 84484; 85025; 85379; 93005; 94640; 94664; 99284; A9270

== ENCOUNTER 2021-04-11 08:10 | Outpatient (CLI) | payer OTHER ==
[2021-04-11 12:21] LABS: CREATININE 0.5 mg/dL (0.6-1.2); MAGNESIUM 2.3 mg/dL (1.7-2.8); POTASSIUM 4.5 mmol/L (3.5-5.0)
== END 2021-04-11 23:59 | disposition home or self-care (01) ==
LOC: LAB.WCP 08:10
PROVIDERS: ATTEND Family Medicine
DX: R00.2 Palpitations (principal)
CPT/HCPCS: 36415; 80048; 83735

== ENCOUNTER 2021-10-07 15:36 | Outpatient (CLI) | payer OTHER ==
[2021-10-07 16:18] VITALS: BP 121/72
--- NOTE | 2021-10-07 16:18 | SLEEP CARE CONSULTATION ---
Information from patient questionnaire entered by Jack Tirado MA. I have reviewed and concur with the information entered by Jack Tirado MA. This document represents the service I personally performed and the decisions made by , Aleshia Morgan ARNP. History of Present Illness Service Date and Time: 10/07/2021 1536 Reason for Visit: New patient (ON CPAP, LAST SEEN 2015,), Previously diagnosed sleep apnea, sleep apnea on CPAP therapy, Re-establish care Chief Complaint: reports: Other (Update supplies; he has no symptoms on the CPAP machine ) Date of Onset: 8 years or so Usual bedtime: 10:00 PM Time it takes to fall asleep: 10 min Snores at night: Yes Observed to quit breathing while asleep: Yes Sleeps alone due to snoring: No Number of times waking at night: 2-3 Reasons for waking at night: reports: Choking, Bathroom Toss, Turn, or Twitch while sleeping: No Recalls having dreams: Yes Usually gets out of bed at: 0645 Feels refreshed in the morning: Yes Morning headache: No Sleepy or fatigued during the day: No Ever fallen asleep while driving: No Takes day naps: No Dreams during day naps: No Prior sleep studies: Yes Year and Where: [facility] August 2015 Additional HPI information: NAVIN AGRAWAL was previously diagnosed to have moderate, AHI 29.3, obstructive sleep apnea-hypopnea syndrome and comes in today to re-establish care for CPAP therapy. He states he needs supplies. He lost his insurance and has been buying the supplies he needs. He now has good insurance and he would like to have his supplies covered. He also has a recalled [employer] Dreamstation. He tried to stop using his device but his throat would get so inflamed and dry after a couple nights from his snoring that he restarted using it again. He has not seen any black debris in his device. - Parasomnia Symptoms Ever been unable to move upon waking from sleep: Yes Walks in sleep: Yes Talks in sleep: Yes Ever acted out dreams in sleep: No Ever felt weak in the knees when startled or emotional: No Bothered by creepy, crawly, restless sensations in legs: No Problems with memory or concentration: Yes CPAP Compliance Data - Data Reviewed with Patient Average duration of nightly device use: 7 hours 21 minutes Compliance rate %: 93.9 Current pressure setting (cmH2O): 10.0 Humidity settin Heated hose settin Average residual AHI: 0.6 Central apnea: 0.1 Obstructive apnea: 0.3 Average large leak: 4 seconds Compliance data discussion: He has been getting supplies on [employer] because he lost his insurance. He has a Dreamstation. He uses a nasal cushion. Subjective Missed days of use due to: reports: other (recall; power outage ) Patient concerns: denies: aerophagia, mask discomfort, air blowing in eyes, mask leak noise, condensation in mask/hose, nasal congestion, dry mouth, nose, throat, epistaxis, other Observed to snore while using device: No Current pressure setting perceived as: comfortable On therapy, patient: reports: sleeping better, awakening more refreshed, being more awake and alert during the day, more rested overall. 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 Patient is and lives in [place]. Have you smoked in the past 12 months: No Alcohol use: Yes Alcohol amount and frequency: 1-2 drinks; 2-3 times a month Caffeine use: Yes Caffeine amount and frequency: 1-2 coffee every day Family History Family history of sleep disordered breathing: Yes Family Hx Sleep Apnea: Mother: Snoring, Sleep apnea - Untreated, Sibling: Snoring, Sleep apnea - Treated, Sleep apnea - Untreated Allergies and Home Medications Drug allergies reviewed: Yes (NKDA) Home medication list reviewed: Yes Allergy and home medication list: Allergies No Known Drug Allergies Allergy (Verified 03/26/21 23:52) Medications: Lisinopril Review of Systems Weight gain over past 5 years: 20 Cardiovascular: reports: high blood pressure, irregular heart rate or pulse, leg or foot swelling Respiratory: reports: shortness of breath Urinary: reports: frequency Psychiatric: reports: mood disorder Physical Exam Vital signs obtained and entered by: RITA PENA Blood Pressure: 121/72 (left) Cuff size: wrist Heart Rate: 76 O2 Saturation: 97 (paper mask) Height: 5 ft 9 in Weight: 320 lb (w/ clothes) Body Mass Index: 47.2 BMI Classification: Morbidly Obese Heart: regular rate and rhythm Lungs: clear bilaterally Impression and Plan 1. Obstructive Sleep Apnea-Hypopnea Syndrome, moderate, with good treatment compliance and good apnea control. On CPAP therapy, the patient has better sleep quality and is more rested overall. Patient needs a new DME supplier for supplies. Patient denies any black particles seen in machine or hoses, any unusual odors coming from device. Since the patients current machine is at least 5 years old, the patient is opting to update their device with a device that is not on the recall. Patient voiced understanding and agreement with plan. Patient's apnea severity and rationale for treatment to reduce apnea, improve sleep quality and reduce cardiovascular and cerebrovascular events was reviewed. I also reviewed the benefit of consistent device use of CPAP for hypertension, mood disorder and arrhythmia. Patient has gained weight. Currently patients BMI is 47.2. Obesity increases the risk of apnea, CPAP pressure requirements and overall health risks especially cardiovascular and diabetes. Thus patient is advised to lose weight. Weight loss can be done with reducing portion size, reducing refined foods and balancing content with vegetables, fruit and whole grain foods. In addition, patient encouraged to get regular exercise. * Continue auto CPAP pressure at 10.0 cmH2O * Update CPAP device * Update supplies * Transfer DME * Notify me if snoring with mask or feeling that the pressure is too much or too little * Attempt to lose weight * Call this office if any problems using CPAP * Return for follow up one month after obtaining new device, or sooner if concerns arise Counseling Topics: Weight loss health impact Visit Type: In Office Time Spent with Patient (minutes): 32 Provider Statement: I spent 100% of the Face to Face Visit with the patient with greater than 50% spent counseling the patient and coordination of care.
== END 2021-10-07 15:37 | disposition home or self-care (01) ==
LOC: SC 15:36
PROVIDERS: ATTEND Nurse Practitioner Family
DX: G47.33 Obstructive sleep apnea (adult) (pediatric) (principal); E66.01 Morbid (severe) obesity due to excess calories; Z68.42 Body mass index [BMI] 45.0-49.9, adult
CPT/HCPCS: 99203; 99212

== ENCOUNTER 2022-02-11 16:46 | Outpatient (CLI) | payer OTHER ==
--- NOTE | 2022-02-12 08:53 | CT Report ---
PROCEDURE: Abdomen/Pelvis WO INDICATIONS: RIGHT FLANK PAIN, HIST OF KIDNEY STONE TECHNIQUE: Noncontrast 5 mm thick sections acquired from the diaphragms to the symphysis. 5 mm coronal and sagi ttal reformats were then performed. For radiation dose reduction, the following was used: automated exposure control, adjustment of mA and/or kV according to patient size. COMPARISON: 01/25/2020 FINDINGS: There is an approximately 3 mm calculus in the right urinary bladder immediately adjacent to the righ t UVJ (series 3 image 146). Both ureters are normal in size and appearance. No perinephric fat strand ing. Small nonobstructing calculus in the upper pole right kidney measuring 3 mm on series 3 image [address] appearance of the liver, spleen, pancreas, gallbladder, and adrenal glands. No a cute enteric abnormality. The appendix is normal. Sigmoid diverticulosis without findings of divertic ulitis. Nonaneurysmal abdominal aorta. No threshold enlarged intra-abdominal, retroperitoneal, pelvic , or inguinal lymph node. No free fluid or free air within the abdomen or pelvis. Included portions o f the lung bases are clear. No acute osseous abnormality. IMPRESSION: Approximately 3 mm calculus in the urinary bladder immediately adjacent to the right J. This likely r epresents a stone which has recently passed from the right ureter into the urinary bladder. There is no hydronephrosis. Reviewed by: Villa Patel MD on 02/12/2022 8:51 AM PDT Approved by: Villa Patel MD on 02/12/2022 8:51 AM PDT Station ID: [id number]
== END 2022-02-11 16:47 | disposition home or self-care (01) ==
LOC: DI 16:46
PROVIDERS: ATTEND Nurse Practitioner Family
DX: N20.0 Calculus of kidney (principal); Z87.442 Personal history of urinary calculi

== ENCOUNTER 2023-01-29 07:48 | Outpatient (CLI) | payer OTHER ==
--- NOTE | 2023-01-29 10:03 | XRAY Report ---
PROCEDURE: Foot 3 View RT INDICATIONS: HEEL PAIN, PLANTAR FASCIITIS TECHNIQUE: 3 views of the foot were acquired. COMPARISON: None. FINDINGS: Bones: Mild hallux valgus alignment bilaterally, along with first MTP mild degenerative changes. No displaced fracture or dislocation. Prominent os peroneum. Moderate plantar calcaneal enthesopathy. Soft tissues: There might be calcification along the proximal plantar fascia seen on lateral view. IMPRESSION: Moderate plantar calcaneal enthesopathy, compatible with reported history of plantar fasciitis. There may additionally be calcification along the proximal plantar fascia, seen on lateral view. Mild first MTP degenerative changes. If there is high concern for further derangement, consider MRI evaluation. Reviewed by: Vickey Marlow MD on 01/29/2023 10:01 AM PDT Approved by: Vickey Marlow MD on 01/29/2023 10:01 AM PDT Station ID: [id number]
== END 2023-01-29 07:49 | disposition home or self-care (01) ==
LOC: DI.N 07:48
PROVIDERS: ATTEND Physician Assistant
DX: M72.2 Plantar fascial fibromatosis (principal); M19.071 Primary osteoarthritis, right ankle and foot

== ENCOUNTER → 2023-01-29 | Outpatient (CLI) | payer OTHER ==
[2023-01-29 12:19] LABS: BASOPHILS % (AUTO) 0.8 %; EOSINOPHILS # (AUTO) 0.1 10^3/uL (0.0-0.7); EOSINOPHILS % (AUTO) 0.9 %; HCT - HEMATOCRIT 43.5 % (42.0-52.0); LYMPHOCYTES % (AUTO) 38.3 %; MEAN CORPUSCULAR HGB CONC 34.5 g/dL (32.0-36.0); MEAN CORPUSCULAR VOLUME 92.8 fL (80.0-94.0); MEAN PLATELET VOLUME 9.6 fL (7.4-11.4); MONOCYTES # (AUTO) 0.3 10^3/uL (0.0-1.0); MONOCYTES % (AUTO) 6.4 %; NEUTROPHILS # (AUTO) 2.8 10^3/uL (1.5-6.6); PLT - PLATELET COUNT 203 10^3/uL (130-450); RED BLOOD COUNT 4.69 10^6/uL (4.70-6.10); RED CELL DISTRIBUTION WIDTH 12.9 % (12.0-15.0); WHITE BLOOD COUNT 5.3 x10^3/uL (4.8-10.8)
[2023-01-29 12:38] LABS: ESTIMATED AVERAGE GLUCOSE 126 mg/dL (70-100)
[2023-01-29 12:43] LABS: ALBUMIN 3.9 g/dL (3.2-5.5); ALKALINE PHOSPHATASE 41 IU/L (42-121); ALT ALANINE AMINOTRANSFERASE 58 IU/L (10-60); AST ASPARTATE AMINOTRANSFERASE 40 IU/L (10-42); BILIRUBIN,TOTAL 0.7 mg/dL (0.2-1.0); BUN - BLOOD UREA NITROGEN 11 mg/dL (6-20); CALCIUM 8.6 mg/dL (8.5-10.3); CARBON DIOXIDE - CO2 25 mmol/L (21-32); CHLORIDE 110 mmol/L (101-111); CHOL/HDL RATIO 4.6 (<5.0); CHOLESTEROL 194 mg/dL; CREATININE 0.6 mg/dL (0.6-1.2); GFR - MDRD 150 (>89); GLUCOSE 122 mg/dL (70-100); HDL CHOLESTEROL 42 mg/dL; LDL CHOLESTEROL,CALCULATED 115 mg/dL; LDL/HDL RATIO 2.7 (<3.6); SODIUM 141 mmol/L (135-145); TOTAL PROTEIN 7.8 g/dL (6.7-8.2); TRIGLYCERIDES 184 mg/dL; VLDL CHOLESTEROL 37 mg/dL
[2023-01-29 12:45] LABS: THYROID STIMULATING HORMONE 0.79 uIU/mL (0.34-5.60)
== END ==
LOC: LAB.N 07:40
PROVIDERS: ATTEND Physician Assistant
DX: I10 Essential (primary) hypertension (principal); E78.5 Hyperlipidemia, unspecified; R73.01 Impaired fasting glucose
CPT/HCPCS: 36415; 80053; 80061; 83036; 83721; 84443; 85025

== ENCOUNTER 2023-05-28 08:00 | Outpatient (CLI) | payer OTHER ==
[2023-05-28 12:17] LABS: BILIRUBIN,URINE NEGATIVE (NEGATIVE); GLUCOSE, URINE (UA) NEGATIVE (NEGATIVE); KETONES,URINE (UA) NEGATIVE (NEGATIVE); LEUKOCYTE ESTERASE, URINE NEGATIVE (NEGATIVE); NITRITE,URINE NEGATIVE (NEGATIVE); OCCULT BLOOD,URINE LARGE (NEGATIVE); PROTEIN,URINE NEGATIVE (NEGATIVE); UROBILINOGEN,URINE 0.2 (NORMAL) E.U./dL (NORMAL)
[2023-05-28 12:45] LABS: BACTERIA,URINE Few /HPF (None Seen); CLARITY,URINE CLEAR (CLEAR); MUCUS,URINE Few Strands; RBC,URINE 0-5 /HPF (0-5); SQUAMOUS EPITHELIAL CELL,UR RARE Squamous (<= Few); WBC CLUMPS,URINE NONE SEEN
== END 2023-05-28 23:59 | disposition home or self-care (01) ==
LOC: LAB.N 08:00
PROVIDERS: ATTEND Physician Assistant
DX: R10.9 Unspecified abdominal pain (principal)
CPT/HCPCS: 81001; 87086

== ENCOUNTER 2023-06-17 17:50 | Outpatient (CLI) | payer OTHER ==
--- NOTE | 2023-06-18 14:30 | Ultrasound Report ---
PROCEDURE: Retroperitoneal INDICATIONS: NEPHROLITHIASIS TECHNIQUE: Real-time scanning was performed of the retroperitoneal organs, with image documentation. COMPARISON: None. FINDINGS: Kidneys: Kidneys are normal in size. Right kidney measures 13.5 cm long; left kidney measures 12.5 cm long. Right renal cortical thickness is 2.2 cm; left renal cortical thickness is 1.8 cm. No marita d masses, hydronephrosis. Echogenic stone in the superior pole of the left kidney measuring 6 mm. Bladder: Pre-void bladder volume is 183 mL. Post-void residual is 11 mL. Pre-void images demonstra te no intraluminal masses or stones. On pre-void images, both ureteral jets are noted with color Dop pler interrogation. (Of note, ureteral jets may not be detectable in up to 25% of cases due to insuf ficient differences in specific gravity between ureteral and bladder urine). Miscellaneous: No free abdominal fluid. IMPRESSION: Echogenic stone in the superior calyx of the left kidney measuring 6 mm. No hydronephrosis. Reviewed by: Mynor Hargrove on 06/18/2023 2:28 PM PDT Approved by: Mynor Hargrove on 06/18/2023 2:28 PM PDT Station ID: [id number]
== END 2023-06-17 17:51 | disposition home or self-care (01) ==
LOC: DI 17:50
PROVIDERS: ATTEND Urology
DX: N20.0 Calculus of kidney (principal)

== ENCOUNTER 2023-06-21 07:51 | Outpatient (CLI) | payer OTHER ==
[2023-06-21 12:13] LABS: BASOPHILS # (AUTO) 0.1 10^3/uL (0.0-0.1); BASOPHILS % (AUTO) 0.9 %; EOSINOPHILS # (AUTO) 0.1 10^3/uL (0.0-0.7); EOSINOPHILS % (AUTO) 1.1 %; HCT - HEMATOCRIT 44.5 % (42.0-52.0); HGB - HEMOGLOBIN 15.5 g/dL (14.0-18.0); LYMPHOCYTES # (AUTO) 2.2 10^3/uL (1.5-3.5); LYMPHOCYTES % (AUTO) 39.5 %; MEAN CORPUSCULAR HEMOGLOBIN 31.6 pg (27.0-31.0); MEAN CORPUSCULAR HGB CONC 34.8 g/dL (32.0-36.0); MEAN CORPUSCULAR VOLUME 90.8 fL (80.0-94.0); MEAN PLATELET VOLUME 9.5 fL (7.4-11.4); MONOCYTES # (AUTO) 0.4 10^3/uL (0.0-1.0); MONOCYTES % (AUTO) 6.6 %; NEUTROPHILS # (AUTO) 2.9 10^3/uL (1.5-6.6); NEUTROPHILS % (AUTO) 51.5 %; PLT - PLATELET COUNT 215 10^3/uL (130-450); RED CELL DISTRIBUTION WIDTH 12.5 % (12.0-15.0); WHITE BLOOD COUNT 5.6 x10^3/uL (4.8-10.8)
[2023-06-21 12:16] LABS: BILIRUBIN,URINE NEGATIVE (NEGATIVE); GLUCOSE, URINE (UA) NEGATIVE (NEGATIVE); KETONES,URINE (UA) NEGATIVE (NEGATIVE); LEUKOCYTE ESTERASE, URINE NEGATIVE (NEGATIVE); NITRITE,URINE NEGATIVE (NEGATIVE); OCCULT BLOOD,URINE NEGATIVE (NEGATIVE); PROTEIN,URINE NEGATIVE (NEGATIVE); UROBILINOGEN,URINE 0.2 (NORMAL) E.U./dL (NORMAL)
[2023-06-21 12:24] LABS: CLARITY,URINE CLEAR (CLEAR)
[2023-06-21 12:47] LABS: ESTIMATED AVERAGE GLUCOSE 117 mg/dL (70-100); HEMOGLOBIN A1c% 5.7 % (4.27-6.07)
[2023-06-21 13:01] LABS: ALBUMIN 4.4 g/dL (3.2-5.5); ALBUMIN/GLOBULIN RATIO 1.4 (1.0-2.2); ALKALINE PHOSPHATASE 46 IU/L (42-121); ALT ALANINE AMINOTRANSFERASE 44 IU/L (10-60); AST ASPARTATE AMINOTRANSFERASE 30 IU/L (10-42); BILIRUBIN,TOTAL 0.5 mg/dL (0.2-1.0); BUN - BLOOD UREA NITROGEN 11 mg/dL (6-20); CALCIUM 9.1 mg/dL (8.5-10.3); CARBON DIOXIDE - CO2 25 mmol/L (21-32); CHLORIDE 107 mmol/L (101-111); CHOL/HDL RATIO 3.7 (<5.0); CHOLESTEROL 190 mg/dL; CREATININE 0.5 mg/dL (0.6-1.3); GFR - MDRD 184 (>89); GLUCOSE 118 mg/dL (74-104); HDL CHOLESTEROL 51 mg/dL; LDL CHOLESTEROL,CALCULATED 106 mg/dL; LDL/HDL RATIO 2.1 (<3.6); SODIUM 138 mmol/L (135-145); TOTAL PROTEIN 7.6 g/dL (6.4-8.9); TRIGLYCERIDES 166 mg/dL (48-352); URIC ACID 5.4 mg/dL (4.4-7.6); VLDL CHOLESTEROL 33 mg/dL
[2023-06-21 13:16] LABS: PSA TOTAL 0.275 ng/mL (0.000-2.000)
== END 2023-06-21 07:52 | disposition home or self-care (01) ==
LOC: LAB.N 07:51
PROVIDERS: ATTEND Physician Assistant
DX: E78.5 Hyperlipidemia, unspecified (principal); R73.01 Impaired fasting glucose; R10.9 Unspecified abdominal pain; R35.0 Frequency of micturition; N20.0 Calculus of kidney
CPT/HCPCS: 36415; 80053; 80061; 81001; 81003; 83036; 83721; 84153; 84550; 85025; 87086

== ENCOUNTER 2023-10-04 11:45 | Emergency (ER) | payer OTHER ==
--- NOTE | 2023-10-04 12:12 | ED Physician Documentation ---
PD HPI ABD PAIN - Stated complaint Stated Complaint: LT SIDE/LOWER ABD PX - Chief complaint Chief Complaint: Abd Pain - History obtained from History obtained from: Patient - Additional information Additional information: 38-year-old gentleman history of conservatively manage renal colic in the past. Had an ultrasound in May of last year showing a 6 mm left nephrolith that he says he has passed in the interim. Developed some left flank pain about a month ago and over the last 4 days has developed increasingly severe pelvic pain in the midline associated with hematuria, frequency, and a fever with Tmax of 102 last night. He is also had some diarrhea which seems to have resolved since yesterday. He also has a history of diverticulitis. PD PAST MEDICAL HISTORY - Past Medical History Past Medical History: Yes Cardiovascular: Hypertension, [place] Respiratory: Asthma, Sleep apnea, CPAP use Neuro: None Endocrine/Autoimmune: None GI: GERD, Diverticulitis : Kidney stones HEENT: None Psych: None Musculoskeletal: None Derm: None - Past Surgical History Past Surgical History: No - Present Medications Home Medications: Ambulatory Orders Medication Instructions Recorded Confirmed Lisinopril 20 mg PO DAILY 04/23/14 10/04/23 Albuterol Sulf [Ventolin Hfa 1 - 2 puffs INH Q4HR PRN #1 inhaler 03/27/21 10/04/23 Inhaler] Amox/Clav 875/125 [Augmentin] 1 each PO TID #21 tablet 10/04/23 HYDROcod/ACETAM 5/325 [[place] 5/325] 1 - 2 tab PO Q6H PRN #15 tablet 10/04/23 - Allergies Allergies/Adverse Reactions: Allergies Allergy/AdvReac Type Severity Reaction Status Date / Time No Known Drug Allergies Allergy Verified 10/04/23 11:48 - Social History Does the pt smoke?: No Smoking Status: Never smoker Does the pt drink ETOH?: Yes Does the pt have substance abuse?: No Substance Use and Type: Marijuana - Immunizations Immunizations are current?: Yes - POLST Patient has POLST: No POLST Status: Full Code PD ED PE NORMAL - Vitals Vital signs reviewed: Yes - General General: Alert and oriented X 3, Other (He appears uncomfortable) - Cardiac Cardiac: No murmur, Other (Mild resting tachycardia) - Respiratory Respiratory: No respiratory distress, Clear bilaterally - Abdomen Abdomen: Other (Tender the low abdomen on both sides, potentially right greater than left. Testicular exam is grossly normal.) - Neuro Neuro: Alert and oriented X 3, Normal speech Results - Vitals Vitals: Vital Signs - 24 hr 10/04/23 10/04/23 10/04/23 11:49 11:53 13:53 Temperature 37.6 C 37.6 C 37.6 C Heart Rate 118 H 118 H 100 Respiratory 20 20 18 Rate Blood Pressure 152/97 H 152/97 H 140/88 H O2 Saturation 96 96 98 10/04/23 15:00 Temperature 37.0 C Heart Rate 88 Respiratory 16 Rate Blood Pressure 138/88 H O2 Saturation 100 Oxygen O2 Source Room air - Labs Labs: Laboratory Tests 10/04/23 10/04/23 10/04/23 12:00 12:25 12:25 WBC 12.6 H RBC 5.39 Hgb 17.2 Hct 50.9 MCV 94.4 H MCH 31.9 H MCHC 33.8 RDW 12.8 Plt Count 182 MPV 10.2 Neut # (Auto) 10.0 H Lymph # (Auto) 1.7 [place] # (Auto) 0.8 Eos # (Auto) 0.1 Baso # (Auto) 0.1 Absolute Nucleated RBC 0.00 Nucleated RBC % 0.0 Sodium 135 Potassium 4.0 Chloride 99 L Carbon Dioxide 25 Anion Gap 11.0 BUN 11 Creatinine 0.7 Estimated GFR (MDRD) 125 Glucose 132 H Lactic Acid Calcium 10.1 Total Bilirubin 1.1 H AST 45 H ALT 57 Alkaline Phosphatase 57 Total Protein 9.3 H Albumin 5.2 Globulin 4.1 Albumin/Globulin Ratio 1.3 Lipase 53 Urine Color DARK YELLOW Urine Clarity CLEAR Urine pH 6.5 Ur Specific [place] 1.020 Urine Protein TRACE Urine Glucose (UA) NEGATIVE Urine Ketones NEGATIVE Urine Occult Blood NEGATIVE Urine Nitrite NEGATIVE Urine Bilirubin NEGATIVE Urine Urobilinogen 0.2 (NORMAL) Ur Leukocyte Esterase NEGATIVE Ur Microscopic Review NOT INDICATED Urine Culture Comments NOT INDICATED 10/04/23 12:35 WBC RBC Hgb Hct MCV MCH MCHC RDW Plt Count MPV Neut # (Auto) Lymph # (Auto) [place] # (Auto) Eos # (Auto) Baso # (Auto) Absolute Nucleated RBC Nucleated RBC % Sodium Potassium Chloride Carbon Dioxide Anion Gap BUN Creatinine Estimated GFR (MDRD) Glucose Lactic Acid 2.0 Calcium Total Bilirubin AST ALT Alkaline Phosphatase Total Protein Albumin Globulin Albumin/Globulin Ratio Lipase Urine Color Urine Clarity Urine pH Ur Specific [place] Urine Protein Urine Glucose (UA) Urine Ketones Urine Occult Blood Urine Nitrite Urine Bilirubin Urine Urobilinogen Ur Leukocyte Esterase Ur Microscopic Review Urine Culture Comments - Rads (name of study) CT KUB Relevant Findings:: Final report received, EMP independent interpretation of test (Uncomplicated sigmoid diverticulitis and a 3 mm left nephrolith) PD Medical Decision Making - ED course ED course: 38-year-old gentleman with history as above presents with severe pelvic pain and is found to have diverticulitis on CT. He was also made aware of the incidental nephrolith. Workup in the emergency department otherwise showed a CBC with leukocytosis, CMP that was relatively unremarkable, negative lactate and negative urinalysis. He was treated with divided doses of Dilaudid and Toradol with relief of his pain and given the severity of the diverticulitis flare in the leukocytosis as well as fever at home we discussed antibiotics and decided to go ahead with him and received an IV dose of Zosyn in the emergency department. Departure - Departure Disposition: Home, Self Care Clinical Impression: Diverticulitis large intestine w/o perforation or abscess w/o bleeding Condition: Good Record reviewed to determine appropriate education?: Yes Instructions: Diet Low Residue, ED Diverticulitis, ED Diet Clear Liquid Prescriptions: Amox/Clav 875/125 [Augmentin] 1 each PO TID #21 tablet HYDROcod/ACETAM 5/325 [[place] 5/325] 1 - 2 tab PO Q6H PRN #15 tablet PRN Reason: Pain Comments: [facility] [place] You were seen today for a flare of diverticulitis, see the attached handouts and you should do a clear liquid diet for the first 24 hours, and a low residue diet for another day or 2 after that. Follow-up with your primary care physician, would recommend referral for subsequent colonoscopy, your colon needs to heal for a couple of months but you are due. I am prescribing a short course of narcotic pain medication for you. These are potentially dangerous and addictive medications that should be used carefully. These medications may constipate you. Take an hymx-itq-mcwzehs stool softener (docusate) twice daily with plenty of water while taking these medications. If you go 24 hours without a bowel movement, take [id number] miralax, per package instructions. Do not drink or drive while taking these medications. If you received narcotic or sedating medications while in the emergency department, do not drive for 24 hours. Store this medication in a safe, secure place and out of reach of children. It is a violation of federal law to give or sell this medication to another person or to use in a manner other than prescribed. The ED will not refill narcotic prescriptions, including prescriptions lost or stolen. To dispose of unwanted medications: 1. [facility] a [facility] box for medication in pill form only (no liquids) 8:00 am to 4:30 p.m. Wednesday-Wednesday in the lobby of the [facility] [place], [address] [place] [address]. Empty pills into ziplock bag before disposal. Call [phone] for information. 2.[employer] is a free service available to all [facility] residents. Go to [email or web address] Note that many narcotic pain relievers also contain Tylenol/acetaminophen. Please ensure that your total dose of acetaminophen from all sources does not exceed 3 g (3000 mg) per day. Forms: PCP List Discharge Date/Time: 10/04/23 15:45
[2023-10-04 12:15] LABS: BILIRUBIN,URINE NEGATIVE (NEGATIVE); GLUCOSE, URINE (UA) NEGATIVE (NEGATIVE); KETONES,URINE (UA) NEGATIVE (NEGATIVE); LEUKOCYTE ESTERASE, URINE NEGATIVE (NEGATIVE); NITRITE,URINE NEGATIVE (NEGATIVE); OCCULT BLOOD,URINE NEGATIVE (NEGATIVE); PH,URINE 6.5 PH (5.0-7.5); PROTEIN,URINE TRACE mg/dL (NEGATIVE); UROBILINOGEN,URINE 0.2 (NORMAL) E.U./dL (NORMAL)
[2023-10-04 12:17] LABS: CLARITY,URINE CLEAR (CLEAR)
[2023-10-04] MEDS: ONDANSETRON 4 MG/2 ML VIAL IVP STA (12:45)
[2023-10-04] MEDS: SODIUM CHLORIDE 0.9% 1,000 ML IV STA (12:45)
[2023-10-04] MEDS: KETOROLAC 15 MG/ML VIAL IVP STA (12:46)
[2023-10-04 12:47] LABS: BASOPHILS # (AUTO) 0.1 10^3/uL (0.0-0.1); BASOPHILS % (AUTO) 0.4 %; EOSINOPHILS # (AUTO) 0.1 10^3/uL (0.0-0.7); EOSINOPHILS % (AUTO) 0.4 %; HCT - HEMATOCRIT 50.9 % (42.0-52.0); HGB - HEMOGLOBIN 17.2 g/dL (14.0-18.0); LYMPHOCYTES # (AUTO) 1.7 10^3/uL (1.5-3.5); LYMPHOCYTES % (AUTO) 13.6 %; MEAN CORPUSCULAR HEMOGLOBIN 31.9 pg (27.0-31.0); MEAN CORPUSCULAR HGB CONC 33.8 g/dL (32.0-36.0); MEAN CORPUSCULAR VOLUME 94.4 fL (80.0-94.0); MEAN PLATELET VOLUME 10.2 fL (7.4-11.4); MONOCYTES # (AUTO) 0.8 10^3/uL (0.0-1.0); PLT - PLATELET COUNT 182 10^3/uL (130-450); RED BLOOD COUNT 5.39 10^6/uL (4.70-6.10); RED CELL DISTRIBUTION WIDTH 12.8 % (12.0-15.0); WHITE BLOOD COUNT 12.6 x10^3/uL (4.8-10.8)
[2023-10-04] MEDS: HYDROmorphone 1 MG/ML CARPUJECT IVP STA ×2 (12:47→14:06)
[2023-10-04 13:18] LABS: ALBUMIN 5.2 g/dL (3.2-5.5); ALBUMIN/GLOBULIN RATIO 1.3 (1.0-2.2); BILIRUBIN,TOTAL 1.1 mg/dL (0.2-1.0); CALCIUM 10.1 mg/dL (8.5-10.3); CREATININE 0.7 mg/dL (0.6-1.3); TOTAL PROTEIN 9.3 g/dL (6.4-8.9)
[2023-10-04] MEDS: PIPERACILLIN/TAZOBACTAM 4.5 GM in SODIUM CHLORIDE 0.9% MINIBAG 100 ML IV STA (13:54)
--- NOTE | 2023-10-04 14:51 | CT Report ---
PROCEDURE: Abdomen/Pelvis WO INDICATIONS: Pelvic pain, hematuria, fever TECHNIQUE: A CT scan of the abdomen and pelvis was performed without the use of intravenous contrast. Images we re recorded and evaluated at appropriate window settings. Reformats: coronal and sagittal. For radiat ion dose reduction, the following was used: automated exposure control, adjustment of mA and/or kV ac cording to patient size. COMPARISON: CT abdomen/pelvis 02/11/2022. FINDINGS: Image quality: Diagnostic. Lower chest: Unremarkable. Liver: No contour-deforming mass. Liver is diffusely hypoattenuating, consistent with infiltration. Gallbladder and biliary tree: No radiopaque stones or wall thickening. No biliary dilation. Spleen: No splenomegaly. Pancreas: No pancreatic ductal dilation. Adrenals: No adrenal nodule. Kidneys and ureters: No hydronephrosis. No renal cystic lesion which requires follow up. No solid mas s. Stable 3 mm nonobstructing calculus at the superior pole of the left kidney. Stomach, bowel and peritoneum: There is bowel wall thickening and inflammatory fat stranding surround ing a diverticulum at the sigmoid colon, consistent with acute diverticulitis. No focal fluid collect ion. No pneumoperitoneum. Multiple additional diverticula are seen in the colon. Normal appendix. Sma ll bowel loops and some unremarkable. Lymph nodes: No central or retroperitoneal adenopathy. Vessels: No infrarenal aortic aneurysm. PELVIS Reproductive organs: Unremarkable. Bladder: No wall thickness, accounting for underdistention. Pelvic lymph nodes: No pelvic adenopathy by size criteria. Bones: No aggressive osseous abnormality. Other: No significant ventral or inguinal hernia. IMPRESSION: 1.Acute uncomplicated sigmoid diverticulitis. 2.Nonobstructing 3 mm left renal calculus. No hydronephrosis. Reviewed by: Santosh Geronimo MD on 10/04/2023 2:50 PM PST Approved by: Santosh Geronimo MD on 10/04/2023 2:50 PM PST Station ID: [id number]
[2023-10-04 15:21] VITALS: BP 138/88; O2SAT 100
== END 2023-10-04 15:45 | disposition home or self-care (01) ==
LOC: ED 11:45
DX: K57.32 Diverticulitis of large intestine without perforation or abscess without bleeding (principal); N20.0 Calculus of kidney; I10 Essential (primary) hypertension; I25.2 Old myocardial infarction; J45.909 Unspecified asthma, uncomplicated; G47.30 Sleep apnea, unspecified; Z87.442 Personal history of urinary calculi
CPT/HCPCS: 36415; 74176; 80053; 81003; 83605; 83690; 85025; 87040; 96365; 96375; 96376; 99285; J1170; 81001; 87086

== ENCOUNTER 2023-10-07 07:28 | Inpatient (IN) | payer OTHER ==
--- NOTE | 2023-10-07 07:44 | ED Physician Documentation ---
PD HPI ABD PAIN - Stated complaint Stated Complaint: ABD PX - Chief complaint Chief Complaint: Abd Pain - History obtained from History obtained from: Patient - History of Present Illness Timing - onset: How many days ago (5-6) Timing - duration: Days (5-6) Timing - details: Gradual onset, Still present (was improved with IV abx in ED 3 days ago, but pain and nausea worsened again soon after back home and has consistent vomiting along with pain the past 3 days.) Quality: Cramping, Aching, Pain Location: Periumbilical, LLQ Radiation: Lower back Improved by: No: Vomiting, BM Worsened by: Eating, Moving, Palpation Associated symptoms: Nausea, Vomiting. No: Fever, Constipation, Dysuria Recently seen: Emergency Dept (3 days ago) Review of Systems Constitutional: denies: Fever, Chills Cardiac: denies: Chest pain / pressure Respiratory: denies: Dyspnea, Cough GI: reports: Abdominal Pain, Nausea, Vomiting : denies: Dysuria PD PAST MEDICAL HISTORY - Past Medical History Past Medical History: Yes Cardiovascular: Hypertension, [place] Respiratory: Asthma, Sleep apnea, CPAP use Neuro: None Endocrine/Autoimmune: None GI: GERD, Diverticulitis : Kidney stones HEENT: None Psych: None Musculoskeletal: None Derm: None - Past Surgical History Past Surgical History: No - Present Medications Home Medications: Ambulatory Orders Medication Instructions Recorded Confirmed Lisinopril 20 mg PO DAILY 04/23/14 10/07/23 - Allergies Allergies/Adverse Reactions: Allergies Allergy/AdvReac Type Severity Reaction Status Date / Time No Known Drug Allergies Allergy Verified 10/07/23 07:40 - Social History Does the pt smoke?: No Smoking Status: Never smoker Does the pt drink ETOH?: Yes Does the pt have substance abuse?: No - Immunizations Immunizations are current?: Yes - POLST Patient has POLST: No POLST Status: Full Code PD ED PE NORMAL - Vitals Vital signs reviewed: Yes - General General: Alert and oriented X 3, Well developed/nourished, Other (appears in pain lower abd with significant guarding and percussion tenderness. ) - Cardiac Cardiac: RRR, No murmur - Respiratory Respiratory: No respiratory distress, Clear bilaterally - Abdomen Abdomen: Non distended, Other (markedly tender periumbilical, suprapubic and LLQ area. ). No: Normal bowel sounds (decreased) - Male Male : Deferred - Rectal Rectal: Deferred - Back Back: No CVA TTP - Derm Derm: Normal color, Warm and dry - Extremities Extremities: No edema, No calf tenderness / cord Results - Vitals Vitals: Vital Signs - 24 hr 10/07/23 10/07/23 10/07/23 07:37 08:51 10:00 Temperature 36.0 C L Heart Rate 84 92 94 Respiratory 16 16 16 Rate Blood Pressure 153/84 H 140/74 H 137/85 H O2 Saturation 98 93 97 10/07/23 12:00 Temperature Heart Rate 93 Respiratory 16 Rate Blood Pressure 146/86 H O2 Saturation 98 Oxygen O2 Source Room air - Labs Labs: Laboratory Tests 10/07/23 10/07/23 08:02 08:02 WBC 9.6 RBC 4.34 L Hgb 14.1 Hct 39.7 L MCV 91.5 MCH 32.5 H MCHC 35.5 RDW 12.3 Plt Count 205 MPV 9.4 Neut # (Auto) 7.2 H Lymph # (Auto) 1.5 [place] # (Auto) 0.7 Eos # (Auto) 0.1 Baso # (Auto) 0.1 Absolute Nucleated RBC 0.00 Nucleated RBC % 0.0 Sodium 132 L Potassium 3.5 Chloride 99 L Carbon Dioxide 24 Anion Gap 9.0 BUN 9 Creatinine 0.6 Estimated GFR (MDRD) 149 Glucose 163 H Calcium 9.0 Magnesium 1.9 Total Bilirubin 0.8 AST 27 ALT 36 Alkaline Phosphatase 47 Total Protein 8.1 Albumin 4.0 Globulin 4.1 Albumin/Globulin Ratio 1.0 Lipase 23 - Rads (name of study) abd/pelvic CT Relevant Findings:: Prelim report reviewed, Discussed with rads (worsened diverticulitis sigmoid area with local inflammation and fluid/air adjacent c/w perforation. Local fluid 4 x 2 cm and is not large enough for perc drainage. ), EMP independent interpretation of test PD Medical Decision Making - ED course Complexity details: reviewed results (CT showing worsened diverticulitis which is now complicated with local perforation. ), re-evaluated patient (rpeeat exams and pt was kept compfortable when pain increased. Given repeat doses of Dilaudid when needed. Given IV abx of rocephin and Flagyl as well. ), d/w patient, d/w client insights consultant (dicussed with Radiologist: perforation of the diverticulitis in sigmoid area with local fluid/air 4.2x2.8 cm. This area is not needing drainable at this point, per Radiologist. ), other (also S/W Dr. Rios, fusion operator Surgery, who referred pt to Hospitalist and felt pt not needing surgery at this point. Will consult and follow pt. I talked with Hospitalist at that point and will admit the pt. ) Departure - Departure Disposition: 66 [facility] DC/Xfer Clinical Impression: Diverticulitis, Intractable pain, Vomiting Discharge Date/Time: 10/07/23 15:48
[2023-10-07 08:08] LABS: BASOPHILS # (AUTO) 0.1 10^3/uL (0.0-0.1); BASOPHILS % (AUTO) 0.5 %; EOSINOPHILS # (AUTO) 0.1 10^3/uL (0.0-0.7); EOSINOPHILS % (AUTO) 0.8 %; HCT - HEMATOCRIT 39.7 % (42.0-52.0); HGB - HEMOGLOBIN 14.1 g/dL (14.0-18.0); LYMPHOCYTES # (AUTO) 1.5 10^3/uL (1.5-3.5); LYMPHOCYTES % (AUTO) 15.6 %; MEAN CORPUSCULAR HEMOGLOBIN 32.5 pg (27.0-31.0); MEAN CORPUSCULAR HGB CONC 35.5 g/dL (32.0-36.0); MEAN CORPUSCULAR VOLUME 91.5 fL (80.0-94.0); MEAN PLATELET VOLUME 9.4 fL (7.4-11.4); MONOCYTES # (AUTO) 0.7 10^3/uL (0.0-1.0); MONOCYTES % (AUTO) 7.1 %; NEUTROPHILS # (AUTO) 7.2 10^3/uL (1.5-6.6); NEUTROPHILS % (AUTO) 75.1 %; PLT - PLATELET COUNT 205 10^3/uL (130-450); RED BLOOD COUNT 4.34 10^6/uL (4.70-6.10); RED CELL DISTRIBUTION WIDTH 12.3 % (12.0-15.0); WHITE BLOOD COUNT 9.6 x10^3/uL (4.8-10.8)
[2023-10-07] MEDS: SODIUM CHLORIDE 0.9% 1,000 ML IV STA (08:15)
[2023-10-07] MEDS: ONDANSETRON 4 MG/2 ML VIAL IVP STA (08:18)
[2023-10-07] MEDS: diphenhydrAMINE INJ 50 MG/ML VIAL IVP STA (08:19)
[2023-10-07] MEDS: HYDROmorphone 1 MG/ML CARPUJECT IVP STA ×3 (08:20→12:17)
[2023-10-07 08:22] LABS: MAGNESIUM 1.9 mg/dL (1.7-2.3)
[2023-10-07] MEDS: KETOROLAC 15 MG/ML VIAL IVP STA (08:22)
[2023-10-07] MEDS ORDERED: iohexoL-300 100 ML VIAL ONE (08:51)
[2023-10-07 08:55] LABS: BILIRUBIN,TOTAL 0.8 mg/dL (0.2-1.0); CREATININE 0.6 mg/dL (0.6-1.3); POTASSIUM 3.5 mmol/L (3.5-4.5); TOTAL PROTEIN 8.1 g/dL (6.4-8.9)
[2023-10-07] MEDS: cefTRIAXone 1 GM VIAL IVP STA (10:10)
--- NOTE | 2023-10-07 10:15 | CT Report ---
PROCEDURE: Abdomen/Pelvis W INDICATIONS: diverticulitis Dx 4 days ago, worse pain CONTRAST: Omni 300 100ml TECHNIQUE: After the administration of intravenous contrast, a CT scan of the abdomen and pelvis was performed. Images were recorded and evaluated at appropriate window settings. Reformats: coronal and sagittal. F or radiation dose reduction, the following was used: automated exposure control, adjustment of mA and /or kV according to patient size. COMPARISON: None. FINDINGS: Image quality: Diagnostic. Lower chest: Unremarkable. Liver: The liver is diffusely hypodense suggesting fatty infiltration. No suspicious lesions. Gallbladder and biliary tree: The gallbladder is unremarkable. No biliary ductal dilatation. Spleen: No splenomegaly. Pancreas: No pancreatic ductal dilation. Adrenals: No adrenal nodule. Kidneys and ureters: No hydronephrosis. No renal cystic lesion which requires follow up. No solid mas s. Stomach, bowel and peritoneum: The stomach and small bowel demonstrate normal caliber and wall thickn ess. The appendix is thin-walled and gas-filled. The ascending, transverse, and descending colon demo nstrate normal caliber and wall thickness. Scattered diverticular outpouchings are present throughout the sigmoid colon. There is a focal region of circumferential sigmoid colon wall thickening with ext ensive pericolonic fat stranding. Adjacent to this region of thickened bowel there is a ill-defined f luid and gas collection consistent with bowel perforation and small abscess. The abscess measures shelia roximately 4.2 x 2.3 cm. Lymph nodes: No central or retroperitoneal adenopathy. Vessels: No infrarenal aortic aneurysm. PELVIS Reproductive organs: Unremarkable. Bladder: No abnormal wall thickening, accounting for underdistention. Pelvic lymph nodes: No pelvic adenopathy by size criteria. Bones: No aggressive osseous abnormality. Other: No significant ventral or inguinal hernia. IMPRESSION: 1. Acute perforated sigmoid diverticulitis. This finding was discussed with Dr. Montano at 10:12 AM o n 10/07/2023. 2. No other acute intra-abdominal findings. Normal appendix. 3. Hepatic steatosis. Reviewed by: Georgie Givens MD on 10/07/2023 10:14 AM PST Approved by: Georgie Givens MD on 10/07/2023 10:14 AM PST Station ID: [id number]
[2023-10-07] MEDS: metroNIDAZOLE 500 MG/100 ML 500 MG/100 ML BAG IV ONE (10:16)
[2023-10-07] MEDS: iohexoL-300 100 ML VIAL IVP ONE (10:18)
[2023-10-07] MEDS: DROPERIDOL 5 MG/2 ML VIAL IVP STA (12:15)
[2023-10-07] MEDS ORDERED: ONDANSETRON 4 MG/2 ML VIAL IVP PRN (13:40)
[2023-10-07] MEDS ORDERED: SODIUM CHLORIDE FLUSH 0.9% 10 ML SYRINGE IVP PRN (13:40)
[2023-10-07] MEDS ORDERED: ONDANSETRON ODT 4 MG TABLET TL PRN (13:40)
--- NOTE | 2023-10-07 14:14 | HISTORY & PHYSICAL EXAMINATION ---
Chief Complaint - Chief Complaint Chief Complaint: abdominal pain History of Present Illness - Admitted From Admitted From:: Emergency Room - History Obtained From Records Reviewed: Past ER visits History obtained from: Patient Exam Limitations: none - History of Present Illness HPI Comment/Other: Jaun is a 38 year old male with a history of HTN and recurrent diverticulitis who presents to the ER today with diffuse abdominal pain. He was previously seen in the ER on Wednesday for the same pain and was diagnosed with acute uncomplicated sigmoid diverticulitis on abd/pelvis CT. He was discharged on antibiotics but returned today after increasing nausea and vomiting to the point where he could not keep his antibiotics down. Abdominal/pelvis CT in the ER today showed acute perforated sigmoid diverticulitis. Normal appendix, hepatic stenosis, but no other intraabdominal findings. Surgery was consulted and it was recommended that he be admitted while receiving IV antibiotics. Per surgery, patient will have the operation should he worsen/become septic. Otherwise, he will need an outpatient colonoscopy and potentially elective bowel resection should his condition improve. Currently, patient complains of diffuse abdominal pain, rated 5/10 at rest. The pain is exacerbated with movement and alleviated with pain medications. He does not take any pain medications at home. He admits prior to the abdominal pain beginning, he was in [place] for the week celebrating his anniversary with his and indulged in eating and drinking. He has baseline loose stool and has not had a bowel movement since Wednesday. He denies any bloody stools or painful bowel movements. He reports a fever, decreased appetite, nausea, and vomiting. History - Past Medical History Cardiovascular: reports: Hypertension, [place]. denies: Murmur Respiratory: reports: Asthma, Sleep apnea, CPAP use Neuro: reports: None Endocrine/Autoimmune: reports: None GI: reports: GERD, Diverticulitis (x 4) : reports: Kidney stones HEENT: reports: None Psych: reports: None Musculoskeletal: reports: None Derm: reports: None MRSA Hx?: No - Family & Social History Family History: Mother: Alive and Well, Father: (COVID), Sister: Diabetes, Type 2, Brother: Diabetes, Type 2 Family History Comment/Other: Patient reports extensive history of heart disease on his paternal side Living arrangement: At home Living Situation: With spouse/s.o., With family Social History Notes: He does not smoke. Occasionally he drinks alcohol and rarely uses marijuana - Substance History Use: Uses substance without health or social issues: Alcohol, Cannabis Abuse: Recurrent use of substance despite neg consequences: NONE Dependence: Experiences withdrawal or developed tolerances: NONE - POLST Patient has POLST: No POLST Status: Full Code Meds/Allgy - Home Medications Home Medications: Ambulatory Orders Medication Instructions Recorded Confirmed Lisinopril 20 mg PO DAILY 04/23/14 10/07/23 - Allergies Allergies/Adverse Reactions: Allergies Allergy/AdvReac Type Severity Reaction Status Date / Time No Known Drug Allergies Allergy Verified 10/07/23 07:40 Review of Systems - Constitutional Constitutional: reports: Fever, Poor appetite. denies: Fatigue, Chills, Weakness - Eyes Eyes: denies: Pain, Blurred vision, Field loss, Vision loss - Ears, Nose & Throat Ears, Nose & Throat: denies: Ear pain, Nasal discharge, Sore throat - Cardiovascular Cariovascular: denies: Irregular heart rate, Palpitations, Chest pain, Lightheadedness, Syncope, Exertional dyspnea - Respiratory Respiratory: reports: Snoring, Apnea (CPAP use). denies: Cough, Sputum production, Wheezing - Gastrointestinal Gastrointestinal: reports: Abdominal pain, Constipation, Change in bowel habits, Nausea, Vomiting, Poor appetite - Genitourinary Genitourinary: denies: Dysuria, Frequency, Urgency, Incontinence - Musculoskeletal Musculoskeletal: denies: Back pain, Muscle aches, Muscle weakness, Joint pain - Integumentary Integumentary: denies: Rash, Dryness, Pigment changes - Neurological Neurological: denies: General weakness, Focal weakness, Headache, Numbness - Psychiatric Psychiatric: denies: Depression, Anxiety, Delusions, Hallucinations - Endocrine Endocrine: denies: Polyuria, Polydypsia, Polyphagia - Hematologic/Lymphatic Hematologic/Lymphatic: denies: Anemia, Bruising Exam - Vital Signs Vital Signs: Vital Signs x48h Temp Pulse Resp BP Pulse Ox 10/07/23 12:00 93 16 146/86 H 98 10/07/23 10:00 94 16 137/85 H 97 10/07/23 08:51 92 16 140/74 H 93 10/07/23 07:37 36.0 C L 84 16 153/84 H 98 - Physical Exam General Appearance: positive: No acute distress, Alert Eyes Bilateral: positive: Normal inspection, PERRL, EOMI ENT: positive: No signs of dehydration Neck: positive: No JVD, Trachea midline Respiratory: positive: Chest non-tender, No respiratory distress, Breath sounds nml Cardiovascular: positive: Regular rate & rhythm, No murmur, No gallop Abdomen: positive: Nml bowel sounds, Tenderness (diffuse tenderness upon palpation) Skin: positive: Color nml, No rash, Warm, Dry Extremities: positive: Non-tender, Full ROM, Nml appearance Neurologic/Psychiatric: positive: Oriented x3 Conclusion/Plan - Problem List (1) Diverticulitis Conclusion/Plan: This is patient's 4th episode of diverticulitis. He was started on antibiotic therapy on Wednesday in the ER but returned due to increased abdominal pain and vomiting. Surgery was consulted and advised him to continue on antibiotics while inpatient. If patient deteriorates, he will then require surgery. Otherwise, he can follow up in outpatient with a colonoscopy and consider elective bowel resection. - Continue on IV Zosyn for at least 7-10 days - NPO - IV fluids - Will manage pain with acetaminophen and dilaudid as needed - Will repeat CT on 10/10 to evaluate for any changes (2) Hyponatremia Conclusion/Plan: Patient's sodium on initial labs in the ER on 10/07 at 132. Will provide IV fluids. - IV fluids - Recheck labs tomorrow (3) Hypertension Conclusion/Plan: Patient has hypertension that is being managed with lisinopril 20 mg. - Continue on lisinopril 20 mg - Lab Results Fish Bones: 10/07/23 08:02 10/07/23 08:02
[2023-10-07] MEDS: ACETAMINOPHEN 325 MG TABLET PO PRN (15:53)
[2023-10-07] MEDS: oxyCODONE 5 MG TABLET PO PRN (15:54)
[2023-10-07] MEDS: SODIUM CHLORIDE 0.9% 1,000 ML IV SCH (15:54)
[2023-10-07] MEDS: SODIUM CHLORIDE FLUSH 0.9% 10 ML SYRINGE IVP SCH (15:55)
--- NOTE | 2023-10-07 16:06 | PHARMACY PROGRESS NOTE ---
- Best Possible Medication History Admit Date and Time: 10/07/23 1340 Processed by: Nursing Medications reviewed in ED?: Yes Medication History completed: Yes Patient Interview: Completed Secondary Source(s): Insurance records As the person ultimately responsible for medication therapy, providers are able to order a medication from an existing home medication list in [facility] via the "Reconcile Routine" prior to Confirmation of that medication by application support analyst. Such practice is discouraged except when the physician, in their clinical judgment, deems that a medical need exists for a medication without regard to previous use.
[2023-10-07] MEDS: MORPHINE 2 MG/ML CARPUJECT IVP PRN (18:35)
[2023-10-08 05:51] LABS: BASOPHILS % (AUTO) 0.2 %; EOSINOPHILS # (AUTO) 0.1 10^3/uL (0.0-0.7); EOSINOPHILS % (AUTO) 0.8 %; HCT - HEMATOCRIT 37.8 % (42.0-52.0); HGB - HEMOGLOBIN 13.2 g/dL (14.0-18.0); LYMPHOCYTES # (AUTO) 2.2 10^3/uL (1.5-3.5); LYMPHOCYTES % (AUTO) 24.4 %; MEAN CORPUSCULAR HEMOGLOBIN 32.6 pg (27.0-31.0); MEAN CORPUSCULAR HGB CONC 34.9 g/dL (32.0-36.0); MEAN CORPUSCULAR VOLUME 93.3 fL (80.0-94.0); MEAN PLATELET VOLUME 9.1 fL (7.4-11.4); MONOCYTES # (AUTO) 0.7 10^3/uL (0.0-1.0); MONOCYTES % (AUTO) 8.2 %; NEUTROPHILS # (AUTO) 5.9 10^3/uL (1.5-6.6); NEUTROPHILS % (AUTO) 65.6 %; PLT - PLATELET COUNT 217 10^3/uL (130-450); RED BLOOD COUNT 4.05 10^6/uL (4.70-6.10); RED CELL DISTRIBUTION WIDTH 12.5 % (12.0-15.0)
[2023-10-08 06:08] LABS: CALCIUM 8.6 mg/dL (8.5-10.3); CREATININE 0.7 mg/dL (0.6-1.3); POTASSIUM 3.4 mmol/L (3.5-4.5)
--- NOTE | 2023-10-08 07:18 | PROVIDER PROGRESS NOTE ---
Subjective - Prog Note Date Prog Note Date: 10/08/23 Prog Note Time: 07:18 - Subjective Pt reports feeling: Improved Subjective: Jaun is a 38 year old male with a history of HTN and recurrent diverticulitis who presents to the ER today with diffuse abdominal pain. He was previously seen in the ER on Wednesday for the same pain and was diagnosed with acute uncomplicated sigmoid diverticulitis on abd/pelvis CT. He was discharged on antibiotics but returned today after increasing nausea and vomiting to the point where he could not keep his antibiotics down. He admits prior to the abdominal pain beginning, he was in [place] for the week celebrating his anniversary with his and indulged in eating and drinking. Abdominal/pelvis CT in the ER today showed acute perforated sigmoid diverticulitis. Normal appendix, hepatic stenosis, but no other intra-abdominal findings. Surgery was consulted and it was recommended that he be admitted while receiving IV antibiotics. Per surgery, patient will have the operation should he worsen/become septic. Otherwise, he will need an outpatient colonoscopy and potentially elective bowel resection should his condition improve. 10/07: 5 abdominal pain that is exacerbated by movement. No BM since Wednesday. Complains of fever, nausea, and vomiting. Currently, patient reports improvement in his abdominal pain. He is able to get up and walk around without difficulty. After having a laxative this morning, he was able to have a small bowel movement. Reports feeling pressure from gas and is interested in medication to help. Otherwise, he is doing well. His nausea has resolved and he is able to keep clear liquids down. Objective - Vital Signs/Intake & Output Vital Signs: Vital Signs x48h Temp Pulse Resp BP Pulse Ox 10/08/23 00:12 36.8 C 92 20 152/91 H 97 Intake & Output: Intake & Output 10/05/23 10/06/23 10/07/23 10/08/23 23:59 23:59 23:59 23:59 Intake Total 1100 993.333 Balance 1100 993.333 - Lab Results Fish Bones: 10/08/23 05:27 10/08/23 05:27 Other Labs: Lab Results x24hrs 10/08/23 10/08/23 10/07/23 Range/Units 05:27 05:27 08:02 WBC 9.0 (4.8-10.8) x10^3/uL RBC 4.05 L (4.70-6.10) 10^6/uL Hgb 13.2 L (14.0-18.0) g/dL Hct 37.8 L (42.0-52.0) % MCV 93.3 (80.0-94.0) fL MCH 32.6 H (27.0-31.0) pg MCHC 34.9 (32.0-36.0) g/dL RDW 12.5 (12.0-15.0) % Plt Count 217 (130-450) 10^3/uL MPV 9.1 (7.4-11.4) fL Neut # (Auto) 5.9 (1.5-6.6) 10^3/uL Lymph # (Auto) 2.2 (1.5-3.5) 10^3/uL [place] # (Auto) 0.7 (0.0-1.0) 10^3/uL Eos # (Auto) 0.1 (0.0-0.7) 10^3/uL Baso # (Auto) 0.0 (0.0-0.1) 10^3/uL Absolute Nucleated RBC 0.00 x10^3/uL Nucleated RBC % 0.0 /100WBC Sodium 136 132 L (135-145) mmol/L Potassium 3.4 L 3.5 (3.5-4.5) mmol/L Chloride 103 99 L (101-111) mmol/L Carbon Dioxide 25 24 (21-32) mmol/L Anion Gap 8.0 9.0 (6-13) BUN 10 9 (6-20) mg/dL Creatinine 0.7 0.6 (0.6-1.3) mg/dL Estimated GFR (MDRD) 125 149 (>89) Glucose 116 H 163 H (74-104) mg/dL Calcium 8.6 9.0 (8.5-10.3) mg/dL Magnesium 1.9 (1.7-2.3) mg/dL Total Bilirubin 0.8 (0.2-1.0) mg/dL AST 27 (10-42) IU/L ALT 36 (10-60) IU/L Alkaline Phosphatase 47 (42-121) IU/L Total Protein 8.1 (6.4-8.9) g/dL Albumin 4.0 (3.2-5.5) g/dL Globulin 4.1 (2.1-4.2) g/dL Albumin/Globulin Ratio 1.0 (1.0-2.2) Lipase 23 (11-82) U/L 10/07/23 Range/Units 08:02 WBC 9.6 (4.8-10.8) x10^3/uL RBC 4.34 L (4.70-6.10) 10^6/uL Hgb 14.1 (14.0-18.0) g/dL Hct 39.7 L (42.0-52.0) % MCV 91.5 (80.0-94.0) fL MCH 32.5 H (27.0-31.0) pg MCHC 35.5 (32.0-36.0) g/dL RDW 12.3 (12.0-15.0) % Plt Count 205 (130-450) 10^3/uL MPV 9.4 (7.4-11.4) fL Neut # (Auto) 7.2 H (1.5-6.6) 10^3/uL Lymph # (Auto) 1.5 (1.5-3.5) 10^3/uL [place] # (Auto) 0.7 (0.0-1.0) 10^3/uL Eos # (Auto) 0.1 (0.0-0.7) 10^3/uL Baso # (Auto) 0.1 (0.0-0.1) 10^3/uL Absolute Nucleated RBC 0.00 x10^3/uL Nucleated RBC % 0.0 /100WBC Sodium (135-145) mmol/L Potassium (3.5-4.5) mmol/L Chloride (101-111) mmol/L Carbon Dioxide (21-32) mmol/L Anion Gap (6-13) BUN (6-20) mg/dL Creatinine (0.6-1.3) mg/dL Estimated GFR (MDRD) (>89) Glucose (74-104) mg/dL Calcium (8.5-10.3) mg/dL Magnesium (1.7-2.3) mg/dL Total Bilirubin (0.2-1.0) mg/dL AST (10-42) IU/L ALT (10-60) IU/L Alkaline Phosphatase (42-121) IU/L Total Protein (6.4-8.9) g/dL Albumin (3.2-5.5) g/dL Globulin (2.1-4.2) g/dL Albumin/Globulin Ratio (1.0-2.2) Lipase (11-82) U/L Assessment/Plan - Problem List (1) Diverticulitis Impression: This is patient's 4th episode of diverticulitis. He was started on antibiotic therapy on Wednesday in the ER but returned due to increased abdominal pain and vomiting. Surgery was consulted and advised him to continue on antibiotics while inpatient. If patient deteriorates, he will then require surgery. Otherwise, he can follow up in outpatient with a colonoscopy and consider elective bowel resection. - Start Zosyn, day 08/29 - Clear liquid diet - IV fluids - Will manage pain with acetaminophen and dilaudid as needed - Will repeat CT on the 10/10 to evaluate for any changes (2) Hyponatremia Conclusion/Plan: RESOLVED. (3) Hypertension Conclusion/Plan: Patient has hypertension that is being managed with lisinopril 20 mg. - Continue on lisinopril 20 mg
[2023-10-08] MEDS: lisinopriL 20 MG TABLET PO SCH (08:11)
[2023-10-08] MEDS: polyethylene glycoL 3350 17 GM PACKET PO SCH (08:11)
[2023-10-08] MEDS: PIPERACILLIN/TAZOBACTAM 3.375 GM in SODIUM CHLORIDE 0.9% MINIBAG 100 ML IV SCH (10:27)
[2023-10-08] MEDS: POTASSIUM CHLORIDE 20 MEQ/15 ML UDC PO SCH (16:24)
[2023-10-09 05:11] LABS: BASOPHILS # (AUTO) 0.1 10^3/uL (0.0-0.1); BASOPHILS % (AUTO) 0.6 %; EOSINOPHILS # (AUTO) 0.1 10^3/uL (0.0-0.7); HCT - HEMATOCRIT 37.5 % (42.0-52.0); HGB - HEMOGLOBIN 12.5 g/dL (14.0-18.0); MEAN CORPUSCULAR HEMOGLOBIN 31.3 pg (27.0-31.0); MEAN CORPUSCULAR HGB CONC 33.3 g/dL (32.0-36.0); MONOCYTES # (AUTO) 0.8 10^3/uL (0.0-1.0); MONOCYTES % (AUTO) 8.4 %; NEUTROPHILS # (AUTO) 5.9 10^3/uL (1.5-6.6); NEUTROPHILS % (AUTO) 66.7 %; PLT - PLATELET COUNT 226 10^3/uL (130-450); RED BLOOD COUNT 3.99 10^6/uL (4.70-6.10); RED CELL DISTRIBUTION WIDTH 12.5 % (12.0-15.0); WHITE BLOOD COUNT 8.9 x10^3/uL (4.8-10.8)
[2023-10-09 05:29] LABS: SLIDE REVIEW? Indicated
[2023-10-09 06:40] LABS: PLATELET ESTIMATE, MANUAL NORMAL (130-450,000) (NORMAL); PLATELET MORPHOLOGY NORMAL APPEARANCE (NORMAL)
[2023-10-09 09:10] LABS: CALCIUM 8.4 mg/dL (8.5-10.3); CREATININE 0.6 mg/dL (0.6-1.3); POTASSIUM 3.4 mmol/L (3.5-4.5)
--- NOTE | 2023-10-09 10:34 | PROVIDER PROGRESS NOTE ---
Subjective - Prog Note Date Prog Note Date: 10/09/23 Prog Note Time: 10:32 - Subjective Pt reports feeling: No change Subjective: Jaun is a 38 year old male with a history of HTN and recurrent diverticulitis who presents to the ER today with diffuse abdominal pain. He was previously seen in the ER on Wednesday for the same pain and was diagnosed with acute uncomplicated sigmoid diverticulitis on abd/pelvis CT. He was discharged on antibiotics but returned today after increasing nausea and vomiting to the point where he could not keep his antibiotics down. He admits prior to the abdominal pain beginning, he was in [place] for the week celebrating his anniversary with his and indulged in eating and drinking. Abdominal/pelvis CT in the ER today showed acute perforated sigmoid diverticulitis. Normal appendix, hepatic stenosis, but no other intra-abdominal findings. Surgery was consulted and it was recommended that he be admitted while receiving IV antibiotics. Per surgery, patient will have the operation should he worsen/become septic. Otherwise, he will need an outpatient colonoscopy and potentially elective bowel resection should his condition improve. 10/07: 5/10 abdominal pain that is exacerbated by movement. No BM since Wednesday. Complains of fever, nausea, and vomiting. 10/08: Able to have a small BM after laxative. abdominal pain has improved and nausea has resolved. Currently, patient reports no change in his abdominal pain. He is able to get up and walk around without difficulty. Otherwise, he is doing well on his current diet. Objective - Vital Signs/Intake & Output Vital Signs: Vital Signs x48h Temp Pulse Resp BP Pulse Ox 10/09/23 08:17 36.9 C 84 20 138/84 H 95 Intake & Output: Intake & Output 10/06/23 10/07/23 10/08/23 10/09/23 23:59 23:59 23:59 23:59 Intake Total 1100 5040.000 1698.333 Balance 1100 5040.000 1698.333 - Objective General Appearance: positive: No acute distress, Alert Eyes Bilateral: positive: Normal inspection ENT: positive: No signs of dehydration Neck: positive: Nml inspection Respiratory: positive: No respiratory distress, Breath sounds nml Cardiovascular: positive: Regular rate & rhythm, No murmur, No gallop Abdomen: positive: Nml bowel sounds, No distention Skin: positive: Color nml, No rash, Warm, Dry Extremities: positive: Non-tender, Full ROM, Nml appearance Neurologic/Psychiatric: positive: Oriented x3 - Lab Results Fish Bones: 10/09/23 04:51 10/09/23 08:51 Other Labs: Lab Results x24hrs 10/09/23 10/09/23 Range/Units 08:51 04:51 WBC 8.9 (4.8-10.8) x10^3/uL RBC 3.99 L (4.70-6.10) 10^6/uL Hgb 12.5 L (14.0-18.0) g/dL Hct 37.5 L (42.0-52.0) % MCV 94.0 (80.0-94.0) fL MCH 31.3 H (27.0-31.0) pg MCHC 33.3 (32.0-36.0) g/dL RDW 12.5 (12.0-15.0) % Plt Count 226 (130-450) 10^3/uL MPV 9.0 (7.4-11.4) fL Neut # (Auto) 5.9 (1.5-6.6) 10^3/uL Lymph # (Auto) 2.0 (1.5-3.5) 10^3/uL [place] # (Auto) 0.8 (0.0-1.0) 10^3/uL Eos # (Auto) 0.1 (0.0-0.7) 10^3/uL Baso # (Auto) 0.1 (0.0-0.1) 10^3/uL Absolute Nucleated RBC 0.00 x10^3/uL Nucleated RBC % 0.0 /100WBC Manual Slide Review Indicated Platelet Estimate NORMAL (130-450,000) (NORMAL) Platelet Morphology NORMAL APPEARANCE (NORMAL) Sodium 135 (135-145) mmol/L Potassium 3.4 L (3.5-4.5) mmol/L Chloride 104 (101-111) mmol/L Carbon Dioxide 23 (21-32) mmol/L Anion Gap 8.0 (6-13) BUN 7 (6-20) mg/dL Creatinine 0.6 (0.6-1.3) mg/dL Estimated GFR (MDRD) 149 (>89) Glucose 140 H (74-104) mg/dL Calcium 8.4 L (8.5-10.3) mg/dL Assessment/Plan - Problem List (1) Diverticulitis Impression: This is patient's 4th episode of diverticulitis. He was started on antibiotic therapy on Wednesday in the ER but returned due to increased abdominal pain and vomiting. Surgery was consulted and advised him to continue on antibiotics while inpatient. If patient deteriorates, he will then require surgery. Otherwise, he can follow up in outpatient with a colonoscopy and consider elective bowel resection. - Start Zosyn, day 10/27 - Clear liquid diet - IV fluids - Will manage pain with acetaminophen and dilaudid as needed - Will repeat CT on the 10/10 to evaluate for any changes Hypokalemia: Patient's potassium is at 3.4. We will give him 20 mEq supplementation - Supplemental potassium orally Hyponatremia Conclusion/Plan: RESOLVED. Hypertension Conclusion/Plan: Patient has hypertension that is being managed with lisinopril 20 mg. - Continue on lisinopril 20 mg
[2023-10-09] MEDS: POTASSIUM CHLORIDE 20 MEQ/15 ML UDC PO ONE (17:52)
[2023-10-10 06:06] LABS: BASOPHILS # (AUTO) 0.1 10^3/uL (0.0-0.1); BASOPHILS % (AUTO) 0.9 %; EOSINOPHILS # (AUTO) 0.1 10^3/uL (0.0-0.7); EOSINOPHILS % (AUTO) 1.7 %; HCT - HEMATOCRIT 38.9 % (42.0-52.0); HGB - HEMOGLOBIN 13.3 g/dL (14.0-18.0); LYMPHOCYTES # (AUTO) 2.3 10^3/uL (1.5-3.5); LYMPHOCYTES % (AUTO) 32.5 %; MEAN CORPUSCULAR HGB CONC 34.2 g/dL (32.0-36.0); MEAN CORPUSCULAR VOLUME 93.7 fL (80.0-94.0); MEAN PLATELET VOLUME 8.9 fL (7.4-11.4); MONOCYTES # (AUTO) 0.5 10^3/uL (0.0-1.0); MONOCYTES % (AUTO) 7.2 %; NEUTROPHILS # (AUTO) 3.9 10^3/uL (1.5-6.6); NEUTROPHILS % (AUTO) 55.3 %; PLT - PLATELET COUNT 246 10^3/uL (130-450); RED BLOOD COUNT 4.15 10^6/uL (4.70-6.10); RED CELL DISTRIBUTION WIDTH 12.4 % (12.0-15.0)
[2023-10-10 06:30] LABS: SLIDE REVIEW? Indicated
[2023-10-10 06:39] LABS: CALCIUM 8.6 mg/dL (8.5-10.3); CREATININE 0.6 mg/dL (0.6-1.3); POTASSIUM 3.6 mmol/L (3.5-4.5)
[2023-10-10 06:42] LABS: PLATELET ESTIMATE, MANUAL NORMAL (130-450,000) (NORMAL); PLATELET MORPHOLOGY NORMAL APPEARANCE (NORMAL)
--- NOTE | 2023-10-10 07:25 | PROVIDER PROGRESS NOTE ---
Subjective - Prog Note Date Prog Note Date: 10/10/23 Prog Note Time: 07:25 - Subjective Pt reports feeling: Improved Subjective: Jaun is a 38 year old male with a history of HTN and recurrent diverticulitis who presents to the ER today with diffuse abdominal pain. He was previously seen in the ER on Wednesday for the same pain and was diagnosed with acute uncomplicated sigmoid diverticulitis on abd/pelvis CT. He was discharged on antibiotics but returned today after increasing nausea and vomiting to the point where he could not keep his antibiotics down. He admits prior to the abdominal pain beginning, he was in [place] for the week celebrating his anniversary with his and indulged in eating and drinking. Abdominal/pelvis CT in the ER today showed acute perforated sigmoid diverticulitis. Normal appendix, hepatic stenosis, but no other intra-abdominal findings. Surgery was consulted and it was recommended that he be admitted while receiving IV antibiotics. Per surgery, patient will have the operation should he worsen/become septic. Otherwise, he will need an outpatient colonoscopy and potentially elective bowel resection should his condition improve. 10/07: 5/10 abdominal pain that is exacerbated by movement. No BM since Wednesday. Complains of fever, nausea, and vomiting. 10/08: Able to have a small BM after laxative. abdominal pain has improved and nausea has resolved. 10/09: No change Currently, patient reports improvement in his abdominal pain. He is able to get up and walk around without difficulty. Objective - Vital Signs/Intake & Output Reviewed Vital Signs: Yes Vital Signs: Vital Signs x48h Temp Pulse Resp BP Pulse Ox 10/09/23 23:53 36.6 C 77 16 137/80 H 80 L Intake & Output: Intake & Output 10/07/23 10/08/23 10/09/23 10/10/23 23:59 23:59 23:59 23:59 Intake Total 1100 5040.000 4398.333 100 Balance 1100 5040.000 4398.333 100 - Objective General Appearance: positive: No acute distress, Alert Eyes Bilateral: positive: Normal inspection, PERRL, EOMI ENT: positive: No signs of dehydration Neck: positive: Nml inspection, No JVD, Trachea midline Respiratory: positive: No respiratory distress, Breath sounds nml Cardiovascular: positive: Regular rate & rhythm, No murmur, No gallop Abdomen: positive: Non-tender, Nml bowel sounds, No distention Skin: positive: Color nml, No rash, Warm, Dry Extremities: positive: Non-tender, Full ROM, Nml appearance Neurologic/Psychiatric: positive: Oriented x3 - Lab Results Fish Bones: 10/10/23 06:00 10/10/23 06:00 Other Labs: Lab Results x24hrs 10/10/23 10/10/23 10/09/23 Range/Units 06:00 06:00 10:30 WBC 7.0 (4.8-10.8) x10^3/uL RBC 4.15 L (4.70-6.10) 10^6/uL Hgb 13.3 L (14.0-18.0) g/dL Hct 38.9 L (42.0-52.0) % MCV 93.7 (80.0-94.0) fL MCH 32.0 H (27.0-31.0) pg MCHC 34.2 (32.0-36.0) g/dL RDW 12.4 (12.0-15.0) % Plt Count 246 (130-450) 10^3/uL MPV 8.9 (7.4-11.4) fL Neut # (Auto) 3.9 (1.5-6.6) 10^3/uL Lymph # (Auto) 2.3 (1.5-3.5) 10^3/uL Ness # (Auto) 0.5 (0.0-1.0) 10^3/uL Eos # (Auto) 0.1 (0.0-0.7) 10^3/uL Baso # (Auto) 0.1 (0.0-0.1) 10^3/uL Absolute Nucleated RBC 0.00 x10^3/uL Nucleated RBC % 0.0 /100WBC Manual Slide Review Indicated Platelet Estimate NORMAL (130-450,000) (NORMAL) Platelet Morphology NORMAL APPEARANCE (NORMAL) Sodium 137 (135-145) mmol/L Potassium 3.6 (3.5-4.5) mmol/L Chloride 107 (101-111) mmol/L Carbon Dioxide 23 (21-32) mmol/L Anion Gap 7.0 (6-13) BUN 6 (6-20) mg/dL Creatinine 0.6 (0.6-1.3) mg/dL Estimated GFR (MDRD) 149 (>89) Glucose 111 H (74-104) mg/dL Calcium 8.6 (8.5-10.3) mg/dL Stl C. diff Tox B Gene NEGATIVE (NEGATIVE) 10/09/23 Range/Units 08:51 WBC (4.8-10.8) x10^3/uL RBC (4.70-6.10) 10^6/uL Hgb (14.0-18.0) g/dL Hct (42.0-52.0) % MCV (80.0-94.0) fL MCH (27.0-31.0) pg MCHC (32.0-36.0) g/dL RDW (12.0-15.0) % Plt Count (130-450) 10^3/uL MPV (7.4-11.4) fL Neut # (Auto) (1.5-6.6) 10^3/uL Lymph # (Auto) (1.5-3.5) 10^3/uL Ness # (Auto) (0.0-1.0) 10^3/uL Eos # (Auto) (0.0-0.7) 10^3/uL Baso # (Auto) (0.0-0.1) 10^3/uL Absolute Nucleated RBC x10^3/uL Nucleated RBC % /100WBC Manual Slide Review Platelet Estimate (NORMAL) Platelet Morphology (NORMAL) Sodium 135 (135-145) mmol/L Potassium 3.4 L (3.5-4.5) mmol/L Chloride 104 (101-111) mmol/L Carbon Dioxide 23 (21-32) mmol/L Anion Gap 8.0 (6-13) BUN 7 (6-20) mg/dL Creatinine 0.6 (0.6-1.3) mg/dL Estimated GFR (MDRD) 149 (>89) Glucose 140 H (74-104) mg/dL Calcium 8.4 L (8.5-10.3) mg/dL Stl C. diff Tox B Gene (NEGATIVE) Assessment/Plan - Problem List (1) Diverticulitis Impression: This is patient's 4th episode of diverticulitis. He was started on antibiotic therapy on Wednesday in the ER but returned due to increased abdominal pain and vomiting. Surgery was consulted and advised him to continue on antibiotics while inpatient. If patient deteriorates, he will then require surgery. Otherwise, he can follow up in outpatient with a colonoscopy and consider elective bowel resection. CT on 10/10 showed: - Start Zosyn, day 10/27 - Regular diet - IV fluids - Will manage pain with acetaminophen and dilaudid as needed Hypokalemia: RESOLVED. Hyponatremia Conclusion/Plan: RESOLVED. Hypertension Conclusion/Plan: Patient has hypertension that is being managed with lisinopril 20 mg. - Continue on lisinopril 20 mg
[2023-10-10] MEDS ORDERED: iohexoL-300 100 ML VIAL ONE (07:40)
[2023-10-10] MEDS: iohexoL-300 100 ML VIAL IVP ONE (14:49)
--- NOTE | 2023-10-10 16:04 | CT Report ---
PROCEDURE: Abdomen/Pelvis W INDICATIONS: follow perforated diverticulitis abcess CONTRAST: Omni 300 100ml TECHNIQUE: After the administration of intravenous contrast, a CT scan of the abdomen and pelvis was performed. Images were recorded and evaluated at appropriate window settings. Reformats: coronal and sagittal. F or radiation dose reduction, the following was used: automated exposure control, adjustment of mA and /or kV according to patient size. COMPARISON: CT abdomen pelvis seen 2023, 10/04/2023. FINDINGS: Image quality: Diagnostic. Lower chest: Unremarkable. Liver: Hepatic steatosis, unchanged from prior. Gallbladder and biliary tree: No radiopaque stones or wall thickening. No biliary dilation. Spleen: No splenomegaly. Pancreas: No pancreatic ductal dilation. Adrenals: No adrenal nodule. Kidneys and ureters: No hydronephrosis. No renal cystic lesion which requires follow up. No solid mas s. Stomach, bowel and peritoneum: No bowel distension. No pathologic free fluid. Number caliber appendix . Redemonstration of focal circumferential sigmoid colon wall thickening with extensive pericolonic i nflammation. Redemonstration of adjacent ill-defined fluid and gas collection consistent with bowel p erforation and small abscess. Increased coalescence of gas and decreasing fluid component, overall no t definitively changed in size since prior CT. Lymph nodes: No central or retroperitoneal adenopathy. Vessels: No infrarenal aortic aneurysm. PELVIS Reproductive organs: Unremarkable. Bladder: No abnormal wall thickening, accounting for underdistention. Pelvic lymph nodes: No pelvic adenopathy by size criteria. Bones: No aggressive osseous abnormality. Other: No significant ventral or inguinal hernia. IMPRESSION: Compared to prior CT 10/07/2023, no significant change in acute perforated sigmoid diverticulosis. Hepatic steatosis. Reviewed by: Enid Romero MD on 10/10/2023 4:03 PM PST Approved by: Enid Romero MD on 10/10/2023 4:03 PM PST Station ID: [id number]
--- NOTE | 2023-10-10 17:00 | DISCHARGE SUMMARY ---
"Discharge Summary Admit Date: 10/07/23 Discharge Date: 10/10/23 Discharging Provider: Dr. Christine Patel Code Status: Attempt Resuscitation Condition at Discharge: Fair Discharge Disposition: 01 Home, Self Care - DIAGNOSES Admission Diagnoses: Diverticulitis: This is patient's 4th episode of diverticulitis. Educated patient on the importance of completing oral antibiotics and following up with a colonoscopy in 6 weeks. Discussed the option of an elective bowel resection and provided the contact information for two general surgeons here at [facility]. We stressed the importance of returning to the ER immediately should he experience any increase in abdominal pain, fever, chill, or other infectious symptoms. Patient is aware and agreed. - Start on Levaquin and Flagyl for two weeks, finishing on - Schedule outpatient colonoscopy in 6 weeks - Consider elective bowel resection Hypokalemia: RESOLVED Hyponatremia: RESOLVED Hypertension: - Continue on home lisinopril 20 mg - HPI History of Present Illness: Jaun is a 38 year old male with a history of HTN and recurrent diverticulitis who was admitted after presenting with acute uncomplicated sigmoid diverticulitis on abd/pelvis CT. He was previously seen in the ER a few days ago and started on antibiotics but returned due to increasing nausea, vomiting, and pain. - CONSULTS | PROCEDURES Procedures: 10/07: Abdominal/pelvis CT in the ER showed acute perforated sigmoid diverticulitis. Normal appendix, hepatic stenosis, but no other intra-abdominal findings. 10/10: No significant changes in acute perforated sigmoid diverticulosis compared to 10/07 - HOSPITAL COURSE Hospital Course: Surgery was consulted and it was recommended that he be admitted while receiving IV antibiotics. Surgery would be necessary should he worsen/become septic. However, if patient remained stable with no changes on a repeat abd/pelvis CT, he can be discharged and follow up with an outpatient colonoscopy and potentially elective bowel resection in the near future. Since admission, patient has reported improvement in his abdominal pain and resolution of his nausea & vomiting. A repeat abd/pelvis CT on 10/10 showed no significant change in acute perforated sigmoid diverticulosis compared to scan done on 10/07. - ALLERGIES Allergies/Adverse Reactions: Allergies Allergy/AdvReac Type Severity Reaction Status Date / Time No Known Drug Allergies Allergy Verified 10/07/23 07:40 - MEDICATIONS Home Medications: Ambulatory Orders Medication Instructions Recorded Confirmed Lisinopril 20 mg PO DAILY 04/23/14 10/07/23 levoFLOXacin [Levaquin] 750 mg PO QD #33 tablet 10/10/23 metroNIDAZOLE [Flagyl] 500 mg PO TID 11 Days #33 tablet 10/10/23 - PHYSICAL EXAM AT DISCHARGE General Appearance: positive: No acute distress, Alert Eyes Bilateral: positive: Normal inspection ENT: positive: No signs of dehydration Neck: positive: Nml inspection Respiratory: positive: No respiratory distress Cardiovascular: positive: Regular rate & rhythm, No murmur, No gallop Abdomen: positive: Non-tender, Nml bowel sounds Skin: positive: Color nml, No rash, Warm, Dry Extremities: positive: Non-tender, Full ROM, Nml appearance Neurologic/Psychiatric: positive: Oriented x3 - LABS Result Diagrams: 10/10/23 06:00 10/10/23 06:00 - TIME SPENT Time Spent in Discharge (Minutes): 20 (Greater than 30 minutes was spent planning discharge)"
--- NOTE | 2023-10-10 17:06 | Discharge Plan ---
Discharge Plan Problem Reviewed?: Yes Disposition: Home, Self Care Condition: Fair Prescriptions: metroNIDAZOLE [Flagyl] 500 mg PO TID 11 Days #33 tablet levoFLOXacin [Levaquin] 750 mg PO QD #33 tablet Diet: Regular (low fiber) Activity Restrictions: Activity as Tolerated Shower Restrictions: No Driving Restrictions: No Health Concerns: This is your fourth episode of diverticulitis. You are already seen in the emergency room, given antibiotics, and sent home. In spite of that your pain progressed and you came back to the emergency room. A repeat CT scan of your abdomen shows that you have perforated your bowel and developed a small abscess around the perforation. We started you on intravenous antibiotics, clear liquid diet, and you have done well. You do not have a fever, you do not have an elevated white cell count indicating severe infection. You been advance to normal diet and you are ambulating in the hallway and in the room without any difficulty. You have minimal pain. You would like to go home. We repeated your CAT scan today and there is no change from the admission CAT scan. I spoke to general surgery and they feel that they are cautiously optimistic that you may resolve this on your own. Surgery feels you can go home as well. Plan of Treatment: 1. Please complete antibiotic therapy. I am giving you enough antibiotics to take until September. I will be changing the antibiotics. Your infection failed to respond to Augmentin antibiotics that were given to you from the emergency room. As such I am changing you to Levaquin 750 mg tablet once a day. And Flagyl 500 mg tablet 3 times a day. 2. Eat a low fiber diet. Make sure you drink plenty of water. You do not want to get constipated. 3. Please see the surgeon in follow-up in the next week. You can see Dr. Kel Gillespie I would be general surgery and his phone number is [phone]. Or you can see Linda Keyes at [phone], extension [phone]. 4. The current plan is to get you through this acute episode of diverticulitis. After that plan for a colonoscopy in the next 6 to 8 weeks. And after that you may be offered an elective colon resection to remove that part of your bowel that keeps on having diverticulitis. Care Goals: At this point you want to just get better from this episode, go back to work. Long-term plans are to hopefully control diverticulosis so that it does not bother you again Assessment: Patient is alert, oriented to person, place, time and situation. States he understands the instructions and promises to follow through No Smoking: If you smoke, Please STOP! Call for help. Follow-up with: Vee Paz PA-C [Primary Care Provider] - Stanley Jones MD [Provider Admit Priv/Credential] - Kel Gillespie MD [Provider Admit Priv/Credential] -
[2023-10-10] MEDS: metroNIDAZOLE 250 MG TABLET PO STA (17:16)
[2023-10-10] MEDS: levoFLOXacin 250 MG TABLET PO STA (17:16)
[2023-10-10 18:06] VITALS: BP 132/79; O2SAT 99
== END 2023-10-10 18:03 | disposition home or self-care (01) | DRG 392 ==
LOC: ED 07:28 → MS2 13:40
PROVIDERS: ADMIT Specialist; ATTEND Specialist
DX: K57.20 Diverticulitis of large intestine with perforation and abscess without bleeding (principal); E87.1 Hypo-osmolality and hyponatremia; E87.6 Hypokalemia; I10 Essential (primary) hypertension; I25.2 Old myocardial infarction; J45.909 Unspecified asthma, uncomplicated; G47.30 Sleep apnea, unspecified; K21.9 Gastro-esophageal reflux disease without esophagitis; Z79.899 Other long term (current) drug therapy; Z82.49 Family history of ischemic heart disease and other diseases of the circulatory system; Z83.3 Family history of diabetes mellitus
CPT/HCPCS: 36415; 74177; 80048; 80053; 83690; 83735; 85025; 87493; 96365; 96375; 96376; 99285; A9270; J1170; J1200; Q9967

== ENCOUNTER 2024-04-27 08:00 | Outpatient (CLI) | payer OTHER ==
[2024-04-28 00:22] LABS: CHLAMYDIA TRACHOMATIS DNA NEGATIVE (NEGATIVE); NEISSERIA GONORRHOEAE DNA NEGATIVE (NEGATIVE); TRICHOMONAS VAGINALIS DNA NEGATIVE (NEGATIVE)
== END 2024-04-27 23:59 | disposition home or self-care (01) ==
LOC: LAB.N 08:00
PROVIDERS: ATTEND Physician Assistant Medical
DX: R39.89 Other symptoms and signs involving the genitourinary system (principal)
CPT/HCPCS: 36415; 84153; 87491; 87591; 87661